=== PATIENT | female | born 1940 | race Hispanic/Latino ===

== ENCOUNTER 2018-06-20 15:41 | Inpatient (IN) | payer MEDICAID, SELFPAY ==
[~2018-06-20 15:41] MED LIST: Iopamidol 370 76% 100 ML VIAL ONE
[2018-06-20 16:08] LABS: #Basophils 0.1 thou/uL (0.0-0.2); #Eosinphils 0.2 thou/uL (0.0-0.7); #Lymphocytes 2.1 thou/uL (1.20-3.40); #Monocytes 0.6 thou/uL (0.11-0.59); #Neutrophils 3.7 thou/uL (1.40-6.50); %Basophils 0.7 % (0.0-1.0); %Eosinophils 3.5 % (0.0-10.0); %Lymphocytes 31.3 % (21.0-51.0); %Monocytes 9.5 % (0.0-10.0); Hemoglobin 7.4 g/dL (12.0-16.0); Mean Corpuscular HGB CONC 28.7 g/dL (32.0-36.0); Mean Corpuscular Hemoglobin 18.3 pg (27.0-31.0); Mean Corpuscular Volume 63.7 fL (78.0-98.0); Mean Platelet Volume 5.7 fL (7.4-10.4); Platelet Count 226 thou/uL (130-400); RBC Distribution Width 18.4 % (11.5-14.5); Red Blood Cell (RBC) Count 4.05 mill/uL (4.20-5.40); White Blood Cell (WBC) Count 6.7 thou/uL (4.8-10.8)
[2018-06-20 16:27] LABS: Anisocytosis SLIGHT = 6-15 cells (100X) (0-5/hpf); Basophilic Stippling SLIGHT = 1-2 cells (100X) (None Seen); Elliptocytes SLIGHT = 2-5 cells (100X) (0-1/hpf); Hypochromia SLIGHT = 6-15 cells (100X) (0-5/hpf); MDiff Complete? YES; Microcytosis SLIGHT = 6-15 cells (100X) (0-5/hpf); Ovalocytes SLIGHT = 2-5 cells (100X) (0-1/hpf); PLT Morphology Comment Appears Adequate; Poikilocytosis SLIGHT = 6-15 cells (100X) (0-5/hpf); Polychromasia SLIGHT = 2-3 cells (100X) (0-2/hpf); Reflex for Review?? YES; Schistocytes SLIGHT = 2-5 cells (100X) (0-1/hpf)
[2018-06-20 16:28] LABS: INR-International Normal Ratio 1.1; PTT 32.2 SEC (22.9-36.1)
[2018-06-20 16:30] LABS: ALT (SGPT) 14 U/L (8-55); AST (SGOT) 32 U/L (5-34); Albumin 3.6 g/dL (3.4-4.8); Alkaline Phosphatase 79 U/L (40-150); Anion Gap 17 mmol/L (10-20); BUN (Urea Nitrogen) 18 mg/dL (9.8-20.1); Bilirubin, Total 0.7 mg/dL (0.2-1.2); CK (CPK) 126 U/L (29-168); Calc. Creatinine Clearance 0 mL/min (70-130); Calcium 8.4 mg/dL (7.8-10.44); Carbon Dioxide 22 mmol/L (23-31); Chloride 107 mmol/L (98-107); Estimated GFR-MDRD 65; Globulin 3.1 g/dL (2.4-3.5); Glucose 97 mg/dL (83-110); Lipase 38 U/L (8-78); Potassium 4.5 mmol/L (3.5-5.1); Protein, Total 6.7 g/dL (6.0-8.3); Sodium 141 mmol/L (136-145)
[2018-06-20 16:32] LABS: CKMB 1.5 ng/mL (0-6.6); Troponin I Less than 0.010 ng/mL (< 0.028)
[2018-06-20 16:34] LABS: Bilirubin Small (Negative); Blood, Urine Negative (Negative); Clarity CLEAR (Clear); Glucose, Urine (Dipstick) Negative (Negative); Leukocyte Trace (Negative); Nitrite Negative (Negative); Protein, Urine (Dipstick) Negative (Neg-Trace); Specific Gravity, Urine 1.021 (1.002-1.036); pH, Urine 6.5 (5.0-9.0)
[2018-06-20 16:36] LABS: Bacteria/HPF None Seen HPF (None Seen); Hyaline Casts/LPF 4-6 HYALINE CAST LPF (0-3 Hyaline); Pathc Cast-AUWi Flag 1.01 (0-2.49); RBC/HPF 0-3 HPF (0-3); WBC/HPF 0-3 HPF (0-3)
--- NOTE | 2018-06-20 17:24 | RAD ---
SINGLE VIEW OF THE CHEST: 06/20/18 COMPARISON: 05/24/15 HISTORY: Generalized weakness and decreased appetite. Headache. FINDINGS: Single view of the chest shows an enlarged but stable cardiomediastinal silhouette. There is no evid ence of consolidation, mass or pleural effusion. Degenerative changes are seen in the spine. IMPRESSION: Stable cardiomegaly. POS: [facility]
--- NOTE | 2018-06-20 17:36 | CT ---
CT ABDOMEN AND PELVIS WITH CONTRAST: 06/20/18 COMPARISON: None. HISTORY: Headache and abdominal pain. Patient reports seeing blood in the toilet. Weakness and anemia. TECHNIQUE: Multiple contiguous axial images were obtained in a CT of the abdomen and pelvis with contrast. Coron al reformats were performed. FINDINGS: The liver is nodular and cirrhotic in appearance. No focal liver lesions are seen. There are hypodens ities in the kidneys measuring up to 2.0 cm in size which likely represents cysts. The adrenal glands , spleen, and pancreas are unremarkable. No free air, free fluid, or stranding changes are seen in th e abdomen or pelvis. There are a few scattered diverticula in the sigmoid colon. The small bowel is normal in caliber. The appendix is not definitely seen. Atherosclerotic calcifications are seen in the aorta. No abdominal or pelvic lymphadenopathy are seen. Degenerative changes are seen in the spine. The visualized inferior thorax and abdominal wall soft t issues are unremarkable. IMPRESSION: 1. No evidence of acute intra-abdominal/pelvic abnormality. 2. Bilateral renal cysts. POS: [facility]
[2018-06-20] MEDS ORDERED: Pantoprazole 40 MG VIAL ONE (17:45)
[2018-06-20 19:51] LABS: Troponin I Less than 0.010 ng/mL (< 0.028)
[2018-06-20] MEDS ORDERED: HumaLOG 300 UNITS/3 ML VIAL SC PRN (21:42)
[2018-06-20] MEDS ORDERED: Ondansetron ODT 4 MG TAB PO PRN (21:42)
[2018-06-20] MEDS ORDERED: Ondansetron PF 4 MG/2 ML Vial IVP PRN (21:42)
[2018-06-20] MEDS ORDERED: Dextrose 50% Abboject 50 ML SYRINGE SLOW IVP PRN (21:42)
[2018-06-20] MEDS ORDERED: Dextrose 5% in Water 1,000 ML IV PRN (21:42)
[2018-06-20 22:29] LABS: Troponin I Less than 0.010 ng/mL (< 0.028)
[2018-06-20] MEDS: Sodium Chloride 0.9% 1,000 ML IV SCH (22:52)
[2018-06-20 23:31] LABS: Hemoglobin 6.4 g/dL (12.0-16.0)
[2018-06-20 23:52] VITALS: BMI 38.4
[2018-06-21 05:09] LABS: #Eosinphils 0.1 thou/uL (0.0-0.7); #Lymphocytes 2.1 thou/uL (1.20-3.40); #Monocytes 0.5 thou/uL (0.11-0.59); #Neutrophils 2.7 thou/uL (1.40-6.50); %Basophils 0.2 % (0.0-1.0); %Eosinophils 2.7 % (0.0-10.0); %Lymphocytes 38.7 % (21.0-51.0); %Monocytes 8.4 % (0.0-10.0); %Neutrophils 50.1 % (42.0-75.0); Hemoglobin 7.6 g/dL (12.0-16.0); Mean Corpuscular HGB CONC 28.9 g/dL (32.0-36.0); Mean Corpuscular Hemoglobin 19.2 pg (27.0-31.0); Mean Corpuscular Volume 66.7 fL (78.0-98.0); Mean Platelet Volume 5.9 fL (7.4-10.4); Platelet Count 188 thou/uL (130-400); RBC Distribution Width 22.5 % (11.5-14.5); Red Blood Cell (RBC) Count 3.93 mill/uL (4.20-5.40); White Blood Cell (WBC) Count 5.5 thou/uL (4.8-10.8)
[2018-06-21 05:21] LABS: Iron 19 ug/dL (50-170); Iron Binding Capacity, Total 413 mcg/dL (265-497)
[2018-06-21 05:24] LABS: Reticulocyte Count 1.9 % (0.5-1.5)
[2018-06-21 05:37] LABS: ALT (SGPT) 11 U/L (8-55); AST (SGOT) 21 U/L (5-34); Albumin 3.1 g/dL (3.4-4.8); Alkaline Phosphatase 64 U/L (40-150); Anion Gap 12 mmol/L (10-20); BUN (Urea Nitrogen) 12 mg/dL (9.8-20.1); Bilirubin, Total 0.7 mg/dL (0.2-1.2); Calc. Creatinine Clearance 94 mL/min (70-130); Calcium 8.1 mg/dL (7.8-10.44); Carbon Dioxide 22 mmol/L (23-31); Chloride 109 mmol/L (98-107); Estimated GFR-MDRD 77; Globulin 2.9 g/dL (2.4-3.5); Glucose 87 mg/dL (83-110); Potassium 3.9 mmol/L (3.5-5.1); Sodium 139 mmol/L (136-145)
[2018-06-21 05:43] LABS: Folate (Folic Acid) 12.5 ng/mL (7.0-31.4)
--- NOTE | 2018-06-21 06:34 | HP ---
CHIEF COMPLAINT: Generalized weakness and dizziness. HISTORY OF PRESENT ILLNESS: This is a 78-year-old female with past medical history of hypertension, diabetes mellitus type 2, hypothyroidism, ovarian CA status post surgery presenting with generalized weakness, anemia and decreased appetite. Per patient's son, the patient reported that she has been having blood in the toilet for about a year and patient is also having associated symptoms of generalized weakness, decreased appetite, headaches and this is what prompted the patient to come to our hospital to be evaluated. The patient denies any fever, chills, chest pain, palpitations, dizziness. REVIEW OF SYSTEMS: Positive for weakness, dizziness, decreased appetite, but as documented in the HPI. All other systems were reviewed and are negative. PAST MEDICAL HISTORY: Diabetes mellitus type 2, hypertension, hypothyroidism, ovarian cancer, status post surgery. PAST SURGICAL HISTORY: Hysterectomy, oophorectomy of right ovary. FAMILY HISTORY: Reviewed and noncontributory PSYCHIATRIC HISTORY: No previous psychiatric history. SOCIAL HISTORY: The patient has no smoking history. The patient denies any alcohol use. The patient denies any drug use. ALLERGIES: No known drug allergies. MEDICATIONS: 1. The patient is taking aspirin 81 mg. 2. Levothyroxine 150 mcg. 3. Felodipine 5 mg. 4. Vicoprofen 7.5 mg/200 mg. PHYSICAL EXAMINATION: VITAL SIGNS: Blood pressure 149/68, pulse is 82, respiratory rate of 18, O2 saturation of 97 on room air. GENERAL: The patient is lying in bed on her left side, does not appear to be in any acute distress. The patient appears her stated age. HEENT: Normocephalic, atraumatic. Pupils are equal, round, and reactive to light. Extraocular movements are intact. No scleral icterus. Mucous membranes are moist. NECK: No JVD. Full range of motion. Trachea is midline. LUNGS: Clear to auscultation bilaterally. No wheezing, no rales, no rhonchi is appreciated. CARDIOVASCULAR: Positive S1, S2, regular rate and rhythm, no murmurs, no gallops or rubs appreciated. ABDOMEN: Obese abdomen, soft, nontender, nondistended, positive bowel sounds in all quadrants. No peritoneal signs. No pulsatile masses. EXTREMITIES: The patient has 5/5 upper extremity strength, good pulses at the radial pulses bilaterally. Lower extremities: The patient had a 5/5 lower extremity strength. No edema noted. Good strength of the lower extremities bilaterally. NEUROLOGIC: Cranial nerves II-XII grossly intact. No neurologic deficit noted. SKIN: Warm, dry, and intact. EKG showed sinus rhythm with a rate of 82. Chest x-ray showed no acute pulmonary process. CT of the abdomen and pelvis with contrast is negative for any acute pathology. LABORATORY: WBC 6.7, hemoglobin 7.4, hematocrit is 25.8, platelet count is 226. RDW is 18.4, MCV 63.7. PT is 14.0, INR is 1.1, PTT 32.2. Sodium is 141, potassium is 4.5, chloride 107, carbon dioxide 22, anion gap 17, BUN is 18, creatinine 0.85, glucose 97, AST 32, ALT 14, ammonia level was 36. TSH is 5.2424. BNP is 76.4. Troponin x3 has been negative at 0.010 x3. Stool occult is negative. ASSESSMENT AND PLAN: 1. This is a 78-year-old female being admitted for symptomatic anemia. The patient has been ordered to be transfused packed red blood cells. We will transfuse the patient and we will follow up on the patient's CBC in the a.m. We have consulted Cardiology to evaluate the patient. It is not known when the patient had endoscopy or colonoscopy done. Patient does not know this history. We will follow up with patient's family and see if patient has had a colonoscopy or endoscopy in the past. We will continue to monitor the patient. 2. Microcytic anemia, most likely due to iron deficiency. At this point, we have ordered iron levels, B12 and folate. We will follow up on iron panel and we will treat the patient accordingly. 3. Hypertension. We will monitor the patient's blood pressure. We will give the patient blood pressure medication as needed and treat the patient's hypertension accordingly. 4. Diabetes mellitus type 2. We will continue insulin sliding scale. 5. Hypothyroidism. The patient's TSH is currently elevated. We have ordered a T4 free. We will follow up on T4 free and we will continue patient on levothyroxine. Currently, the patient is n.p.o., but we can continue patient on her home medications with small sips of water. 6. Deep venous thrombosis and gastrointestinal prophylaxis. MTDD
[2018-06-21] MEDS ORDERED: Prevnar 13-Val Conj/PF 0.5 ML SYRINGE IM ONE (09:00)
[2018-06-21] MEDS: Famotidine/PF 20 mg/2ml Vial SLOW IVP SCH ×2 (09:38→22:28)
[2018-06-21 10:35] LABS: Hemoglobin 8.7 g/dL (12.0-16.0)
[2018-06-21] MEDS: Famotidine 20 MG TAB PO SCH ×2 (11:48→21:35)
[2018-06-21] MEDS ORDERED: GoLYTELY 4,000 ml Bottle PO SCH (14:45)
--- NOTE | 2018-06-21 15:56 | PDOC.PN ---
- Subjective Encounter Start Date: 06/21/18 Encounter Start Time: 08:20 Pt seen for followup re: anemia. Denies chest pain, shortness of breath, fevers or chills. - Objective Resuscitation Status: Resuscitation Status FULL:Full Resuscitation MAR Reviewed: Yes Vital Signs & Weight: Vital Signs (12 hours) Temp Pulse Pulse Resp BP BP Pulse Ox 06/21/18 11:57 98 F 67 18 170/72 H 95 06/21/18 08:11 93 L 06/21/18 08:00 98.3 F 60 16 160/69 H 93 L 06/21/18 07:15 98.1 F 69 16 175/70 H 06/21/18 04:57 97.9 F 61 16 152/69 H 06/21/18 04:42 98.1 F 68 18 148/65 H 06/21/18 04:14 98.2 F 64 16 143/63 H Weight Weight 210 lb 2 oz I&O: 06/20/18 06/21/18 06/22/18 06:59 06:59 06:59 Intake Total 490 350 Balance 490 350 Result Diagrams: 06/21/18 10:08 06/21/18 04:30 Additional Labs: Accuchecks 06/21/18 06/21/18 10:43 05:40 POC Glucose 87 88 EKG Reviewed by me: Yes (Tele: NSR) Phys Exam - Physical Examination Morbid obesity HEENT: moist MMs, sclera anicteric, oral pharynx no lesions, 2+ tonsils pallor Neck: no nodes, no JVD, supple, full ROM Respiratory: no wheezing, no rales, no rhonchi, clear to auscultation bilateral Cardiovascular: RRR, no rub S1, S2 Gastrointestinal: soft, non-tender, no distention, positive bowel sounds Neurological: moves all 4 limbs Psychiatric: normal affect Deviation from normal: oriented to person and place, not to time Dx/Plan (1) Symptomatic anemia Code(s): D64.9 - ANEMIA, UNSPECIFIED Status: Acute Comment: transfuse PRN, await GI input (2) Hypothyroidism Code(s): E03.9 - HYPOTHYROIDISM, UNSPECIFIED Status: Chronic Comment: low fT4, elevated TSH, increase synthroid dose (3) DM2 (diabetes mellitus, type 2) Status: Chronic Comment: continue accuchecks, insulin sliding scale (4) HTN (hypertension) Code(s): I10 - ESSENTIAL (PRIMARY) HYPERTENSION Status: Chronic Comment: start PRN IV hydralazine - Plan * . Review of Systems - Review of Systems Constitutional: weakness. negative: fever, chills, sweats, malaise Respiratory: negative: Cough, Shortness of Breath, SOB with Excertion, Pleuritic Pain, Wheezing Cardiovascular: negative: chest pain, palpitations, orthopnea, paroxysmal nocturnal dyspnea, edema, light headedness Gastrointestinal: negative: Nausea, Vomiting, Abdominal Pain, Diarrhea, Constipation, Melena, Hematochezia Genitourinary: negative: Dysuria, Frequency, Incontinence, Hematuria, Retention Skin: negative: Rash, Lesions, Dave, Bruising - Medications/Allergies Allergies/Adverse Reactions: Allergies Allergy/AdvReac Type Severity Reaction Status Date / Time No Known Allergies Allergy Verified 06/20/18 21:56 Medications: Current Medications Acetaminophen (Tylenol) 650 mg PO Q4H PRN PRN Reason: Headache/Fever/Mild Pain (1-3) Dextrose/Water (Dextrose 50%) 25 gm SLOW IVP PRN PRN PRN Reason: Hypoglycemia Famotidine (Pepcid) 20 mg SLOW IVP Q12HR [facility] Last Admin: 06/21/18 09:38 Dose: 20 mg Famotidine (Pepcid) 20 mg PO BID [facility] Last Admin: 06/21/18 11:48 Dose: Not Given Glucagon (Glucagon) 1 mg IM PRN PRN PRN Reason: Hypoglycemia Sodium Chloride (Normal Saline 0.9%) 1,000 mls @ 70 mls/hr IV .[id number] [facility] Last Admin: 06/20/18 22:52 Dose: 1,000 mls Dextrose/Water (D5w) 1,000 mls @ 0 mls/hr IV .Q0M PRN PRN Reason: Hypoglycemia Insulin Human Lispro (Humalog) 0 units SC .MILD SLIDING SCALE PRN PRN Reason: Mild Correctional Scale Latanoprost (Xalatan 0.005% Ophth Soln) 1 drop EA EYE HS [facility] Levothyroxine Sodium (Synthroid) 50 mcg PO 0600 [facility] Lisinopril (Zestril) 5 mg PO DAILY [facility] Ondansetron HCl (Zofran Odt) 4 mg PO Q6H PRN PRN Reason: Nausea/Vomiting Ondansetron HCl (Zofran) 4 mg IVP Q6H PRN PRN Reason: Nausea/Vomiting Polyethylene Glycol/Electrolytes (Golytely) 4,000 ml PO ONE DEL Stop: 06/21/18 23:00 Sodium Chloride (Flush - Normal Saline) 10 ml IVF Q12HR PRN PRN Reason: Saline Flush Last Admin: 06/21/18 09:38 Dose: 10 ml Sodium Chloride (Flush - Normal Saline) 10 ml IVF PRN PRN PRN Reason: Saline Flush
--- NOTE | 2018-06-21 15:57 | CON ---
DATE OF CONSULTATION: 06/21/2018 REQUESTING PHYSICIAN: Ranjeet Griggs DO REASON FOR CONSULTATION: Iron deficiency anemia and rectal bleeding. HISTORY OF PRESENT ILLNESS: Mayelin Martin is a 78-year-old woman, who was admitted to the hospital last night with severe symptomatic iron deficiency anemia. She has a history of diabetes and hyperte nsion as well as hypothyroidism. She has had a hysterectomy and right oophorectomy in the past. She evidently does take some NSAIDs at home. I see Vicoprofen on her medication list. She denies any p rior gastrointestinal history. She has never had an EGD or colonoscopy that she can remember. She r eports that, for at least several months, she has been having occasional dysphagia to solids or liqui ds, feeling as if food hangs up in the base of the neck or upper part of the chest. This has been a bit worse the past week. She has had frequent small volume emesis over the past few weeks. Occasion ally, she will have some generalized abdominal pain, but this has not been a big part of her presenta tion. She also describes that, over the past 6 months, she has occasionally had a small amount of br ight red blood in her stool. This is not every time. There is no diarrhea with this. She feels she has lost a little bit of weight recently, but cannot quantify it for me. She saw Dr. Carlson in the outpatient setting and was noted to have a hemoglobin of 6.6. Prior hemoglobin was from 3 years [facility] ore and was 11.4 at that time. This is a microcytic anemia and iron studies are low confirming iron deficiency. She has been treated for vitamin B12 deficiency in the past, but vitamin B12 levels at t his time are within normal range. The patient has received 2 units of RBC transfusion since admissio n yesterday. Her hemoglobin came up nicely from 6.4-8.7. REVIEW OF SYSTEMS: Full review of systems including constitutional, head, eyes, ears, nose, throat, GI, , cardiovascular, respiratory, musculoskeletal, and neurologic systems is negative except as no jamey in the HPI. ALLERGIES: No known drug allergies. OUTPATIENT MEDICATIONS: Levothyroxine, felodipine, Vicoprofen. SOCIAL HISTORY: No smoking, alcohol, or drug use. FAMILY HISTORY: No known gastrointestinal malignancy. PAST MEDICAL HISTORY: 1. Hysterectomy and right oophorectomy, evidently for ovarian cancer. 2. Hypothyroidism. 3. Hypertension. 4. Diabetes, type 2. 5. Obesity. PHYSICAL EXAMINATION: VITAL SIGNS: Temperature 98.0, pulse 67, blood pressure 170/72, 95% oxygen saturation on room air. GENERAL: This is a 78-year-old woman lying in bed comfortably, in no acute distress. MENTAL: She is alert and oriented. She can communicate well. SKIN: No jaundice. No rashes visible or palpable. EYES: No scleral icterus. Extraocular movements intact. ENT: Mucous membranes moist, no oral lesions. LYMPH: No submandibular or supraclavicular lymphadenopathy. THYROID: Nontender to palpation. HEART: Regular rate and rhythm. LUNGS: Clear to auscultation bilaterally. ABDOMEN: Obese, bowel sounds are present, soft, some tenderness to palpation in the left upper quadr ant, but no guarding, rebound tenderness. EXTREMITIES: No peripheral edema. VESSELS: Radial pulses 2+ bilaterally. NEUROLOGICAL: Cranial nerves II-XII intact bilaterally. No focal deficits. LABORATORY STUDIES: Hemoglobin was 6.4, hematocrit 22.3, MCV 63.7; after 2 units RBC transfusion, he moglobin came up to 8.7. INR is normal at 1.1, platelets 188, WBC 5.5, free T4 0.52. Folic acid 12. 5. Vitamin B12 306. Ferritin 14.08, TIBC 413, iron low at 19, percentage saturation low at 5, gluco se is 87. Sodium 139, potassium 3.9, BUN only 12, creatinine 0.73, albumin 3.1, total bilirubin 0.7, alkaline phosphatase 64, AST 21, ALT 11, lipase only 38. FOBT was negative. IMAGING STUDIES: Chest x-ray shows stable cardiomegaly, no acute process. CT of the abdomen and pel vis demonstrates no acute process. The liver does have a nodular contour. There are some scattered sigmoid diverticulosis. No other abnormalities. ASSESSMENT AND PLAN: 1. Iron deficiency anemia, severe, symptomatic. 2. Rectal bleeding, intermittent over the past 6 months. 3. Dysphagia, worsening over the past week. I have discussed with the patient and her family that her presentation is concerning for gastrointest inal blood loss. Given the dysphagia, but also the bright red blood in the stool, we need to perform EGD and colonoscopy for further investigation. We may perform esophageal dilation at the time of th e procedure, depending on findings. Note, that she does take nonsteroidal anti-inflammatory drugs an d she is not on any acid suppression. The patient and family expressed understanding. We will admin ister bowel preparation tonight and plan for colonoscopy tomorrow. Thank you for the consultation. Please call any time with questions or concerns.
[2018-06-21] MEDS ORDERED: hydrALAZINE 20 MG/ML VIAL SLOW IVP PRN (16:00)
[2018-06-21] MEDS: Sodium Chloride 0.9% 1,000 ML IV SCH (17:01)
[2018-06-21 17:44] LABS: Hemoglobin 9.5 g/dL (12.0-16.0)
[2018-06-21] MEDS: Latanoprost 0.005% Ophth Soln 2.5 ml Bottle EA EYE SCH (21:35)
[2018-06-21] MEDS ORDERED: Pantoprazole 40 MG VIAL IVP SCH (22:15)
[2018-06-22] MEDS: Levothyroxine Sodium 50 MCG TAB PO SCH (05:32)
[2018-06-22] MEDS: Sodium Chloride 0.9% 1,000 ML IV SCH (05:32)
[2018-06-22] MEDS: Lisinopril 5 MG TAB PO SCH (08:39)
[2018-06-22] MEDS: Pantoprazole 40 MG VIAL IVP SCH ×2 (08:39→20:22)
[2018-06-22] MEDS ORDERED: Promethazine HCl 25 MG/ML VIAL SLOW IVP PRN (12:17)
[2018-06-22] MEDS ORDERED: Ondansetron HCl/PF 4 MG/2 ML Vial IVP PRN (12:17)
[2018-06-22] MEDS ORDERED: Promethazine HCl 25 MG/ML VIAL IM PRN (12:17)
--- NOTE | 2018-06-22 13:09 | OP ---
DATE OF PROCEDURE: 06/22/2018 GI ENDOSCOPY NOTE SURGEON: Bismark Leija M.D. STABLEHAND SURGEON: None. PROCEDURES: 1. EGD with biopsies. 2. Colonoscopy with control of hemorrhage, incomplete exam. INDICATIONS: 1. Iron deficiency anemia. 2. Rectal bleeding. 3. Dysphagia. MEDICATIONS: See anesthesia record. FINDINGS: After discussion of the risks, benefits, and alternatives of the procedure, informed conse nt was obtained and witnessed. Pre-endoscopic cardiopulmonary examination was satisfactory. Timeout was performed before sedation was achieved. Sedation was achieved with anesthesia assistance in the endoscopy unit. A Pentax adult upper endoscope was placed into the oropharynx and passed through th e cricopharyngeus under direct visualization. The esophageal mucosa appeared normal throughout. The endoscope was advanced into the stomach. Forward and retroflexed views of the entire gastric mucosa were obtained. The patient has a small hiatal hernia. In the proximal body at 48 cm from the incis ors, there is a gastric mass. This mass has a broad base, which is ill-defined, and then a finger-li ke projection measuring about 1.5-2 cm in length. There is ulceration on this area of projection, an d a slow mild active oozing of blood. This lesion is too broad based for me to be able to remove end oscopically. Therefore, I elected to get biopsies of the mass. Multiple biopsies were obtained. Th e remainder of the stomach appeared normal. The endoscope was advanced through the pylorus and into the first and second portions of the duodenum, which appeared normal. The upper endoscope was comple tely withdrawn and the patient was repositioned. Digital rectal exam was performed, which demonstrated some external hemorrhoids. A Pentax adult colo noscope was inserted into the anus and passed forward in the usual fashion. Within the rectum, there are multiple medium-sized arteriovenous malformations and there is active oozing of blood from one o f these AVMs. The sigmoid colon is extremely tortuous and there is heavy diverticulosis in the area, to the extent that I was actually unable to pass the colonoscope beyond the sigmoid colon. About 30 cm was the extent of my ability to examine her colon. Examination of the distal sigmoid colon and r ectum showed no other mucosal abnormalities except for the rectal AVMs, one of which was actively ooz ing blood. Retroflexion in the rectum demonstrated some internal hemorrhoids. Her arteriovenous mal formations in the rectum were treated with argon plasma coagulation and hemostasis was successful. A t this point, the colonoscope was completely withdrawn and the patient allowed to recover. The patie nt tolerated the procedure well. There were no immediate post-procedure complications. IMPRESSION: 1. Gastric mass at 48 cm from the incisors, actively oozing slowly, with a broad ill-defined base an d a 1.5 cm finger-like projection with ulceration and active oozing. The mass was biopsied. 2. Otherwise, normal esophagogastroduodenoscopy. 3. Actively oozing rectal arteriovenous malformations, treated successfully with argon plasma coagul ation. 4. Internal and external hemorrhoids. 5. Heavy sigmoid diverticulosis and tortuosity, unable to advance the colonoscope beyond 30 cm. RECOMMENDATIONS: 1. Follow up pathology on the gastric mass biopsies. 2. Monitor hemoglobin and hematocrit. Further transfusion as needed. 3. Daily proton pump inhibitor. 4. Advance diet. 5. The patient's gastric mass was too large and broad based to be removed endoscopically by me. Dep ending on the pathology results, she may end up needing referral to a tertiary center for advanced en doscopic techniques such as ESD. Note, she already had a CT of the abdomen and pelvis which did not demonstrate any findings concerning for metastatic disease.
[2018-06-22] MEDS ORDERED: PROPOFOL 200 MG/20 ML VIAL ONE (13:51)
[2018-06-22] MEDS ORDERED: Lidocaine 1% PF 5 ML VIAL ONE (13:51)
[2018-06-22] MEDS: Acetaminophen 325 MG TAB PO PRN (18:12)
[2018-06-22] MEDS: Latanoprost 0.005% Ophth Soln 2.5 ml Bottle EA EYE SCH (20:22)
--- NOTE | 2018-06-22 22:52 | PDOC.PN ---
- Subjective Encounter Start Date: 06/22/18 Encounter Start Time: 09:15 Patient seen and examined for GI bleed. No new rectal bleed. No new complaints. No overnight events - Objective Resuscitation Status: Resuscitation Status FULL:Full Resuscitation MAR Reviewed: Yes Vital Signs & Weight: Vital Signs (12 hours) Temp Pulse Resp BP Pulse Ox 06/22/18 20:00 98.0 F 70 20 152/67 H 95 06/22/18 16:43 97 06/22/18 15:20 97.9 F 69 16 159/69 H 97 06/22/18 13:10 98.1 F 77 16 174/77 H 97 Weight Weight 209 lb 3 oz I&O: 06/21/18 06/22/18 06/23/18 06:59 06:59 06:59 Intake Total 490 6130 650 Output Total 400 Balance 490 5730 650 Result Diagrams: 06/21/18 17:31 06/21/18 04:30 Additional Labs: Accuchecks 06/22/18 06/22/18 06/22/18 20:56 15:43 05:36 POC Glucose 116 H 91 86 EKG Reviewed by me: Yes (tele SR) Phys Exam - Physical Examination Constitutional: NAD Respiratory: no wheezing, no rhonchi Cardiovascular: RRR, no rub Gastrointestinal: soft, non-tender, positive bowel sounds Musculoskeletal: no edema Neurological: moves all 4 limbs Dx/Plan - Plan DVT proph w/SCDs 1. Symptomatic Anemia 2. Anemia due to GI blood loss s/p 2 units PRBC 3. Iron deficiency 4. Dysphagia 5. Hpothyroidism with low free T4/high TSH 6. Obesity BMI 38.4 7. DM2 8. HTN PLAN: AM labs Cont Lisinopril Add PPI Cont IVF EGD/Colon today Transfer to Medical Review of Systems - Review of Systems Respiratory: negative: Cough, Dry, Shortness of Breath, Hemoptysis, SOB with Excertion, Pleuritic Pain, Sputum, Wheezing Cardiovascular: negative: chest pain, palpitations, orthopnea, paroxysmal nocturnal dyspnea, edema, light headedness, other - Medications/Allergies Allergies/Adverse Reactions: Allergies Allergy/AdvReac Type Severity Reaction Status Date / Time Penicillins Allergy Verified 06/21/18 17:22 Medications: Current Medications Acetaminophen (Tylenol) 650 mg PO Q4H PRN PRN Reason: Headache/Fever/Mild Pain (1-3) Last Admin: 06/22/18 18:12 Dose: 650 mg Dextrose/Water (Dextrose 50%) 25 gm SLOW IVP PRN PRN PRN Reason: Hypoglycemia Glucagon (Glucagon) 1 mg IM PRN PRN PRN Reason: Hypoglycemia Hydralazine HCl (Apresoline) 10 mg SLOW IVP Q6H PRN PRN Reason: SBP Greater Than 170 Last Admin: 06/22/18 13:19 Dose: 10 mg Sodium Chloride (Normal Saline 0.9%) 1,000 mls @ 70 mls/hr IV .[id number] [facility] Last Admin: 06/22/18 05:32 Dose: 1,000 mls Dextrose/Water (D5w) 1,000 mls @ 0 mls/hr IV .Q0M PRN PRN Reason: Hypoglycemia Insulin Human Lispro (Humalog) 0 units SC .MILD SLIDING SCALE PRN PRN Reason: Mild Correctional Scale Latanoprost (Xalatan 0.005% Oph Soln) 1 drop EA EYE HS [facility] Last Admin: 06/22/18 20:22 Dose: 1 drop Levothyroxine Sodium (Synthroid) 50 mcg PO 0600 [facility] Last Admin: 06/22/18 05:32 Dose: 50 mcg Lisinopril (Zestril) 5 mg PO DAILY [facility] Last Admin: 06/22/18 08:39 Dose: 5 mg Ondansetron HCl (Zofran Odt) 4 mg PO Q6H PRN PRN Reason: Nausea/Vomiting Ondansetron HCl (Zofran) 4 mg IVP Q6H PRN PRN Reason: Nausea/Vomiting Pantoprazole Sodium (Protonix) 40 mg IVP Q12HR [facility] Last Admin: 06/22/18 20:22 Dose: 40 mg Sodium Chloride (Flush - Normal Saline) 10 ml IVF Q12HR PRN PRN Reason: Saline Flush Last Admin: 06/22/18 20:26 Dose: 10 ml Sodium Chloride (Flush - Normal Saline) 10 ml IVF PRN PRN PRN Reason: Saline Flush
[2018-06-23 04:52] LABS: #Eosinphils 0.2 thou/uL (0.0-0.7); #Lymphocytes 1.7 thou/uL (1.20-3.40); #Monocytes 0.5 thou/uL (0.11-0.59); #Neutrophils 4.1 thou/uL (1.40-6.50); %Basophils 0.4 % (0.0-1.0); %Eosinophils 3.7 % (0.0-10.0); %Lymphocytes 26.3 % (21.0-51.0); %Neutrophils 62.6 % (42.0-75.0); Hemoglobin 8.7 g/dL (12.0-16.0); Mean Corpuscular HGB CONC 30.1 g/dL (32.0-36.0); Mean Corpuscular Hemoglobin 20.9 pg (27.0-31.0); Mean Corpuscular Volume 69.5 fL (78.0-98.0); Mean Platelet Volume 5.4 fL (7.4-10.4); Platelet Count 187 thou/uL (130-400); RBC Distribution Width 24.2 % (11.5-14.5); Red Blood Cell (RBC) Count 4.17 mill/uL (4.20-5.40); White Blood Cell (WBC) Count 6.5 thou/uL (4.8-10.8)
[2018-06-23 05:07] LABS: Anion Gap 9 mmol/L (10-20); BUN (Urea Nitrogen) 8 mg/dL (9.8-20.1); Calc. Creatinine Clearance 96 mL/min (70-130); Calcium 8.1 mg/dL (7.8-10.44); Carbon Dioxide 23 mmol/L (23-31); Chloride 110 mmol/L (98-107); Estimated GFR-MDRD 79; Glucose 97 mg/dL (83-110); Magnesium 1.7 mg/dL (1.6-2.6); Potassium 3.6 mmol/L (3.5-5.1); Sodium 138 mmol/L (136-145)
[2018-06-23] MEDS: Levothyroxine Sodium 50 MCG TAB PO SCH (05:14)
[2018-06-23] MEDS: Sodium Chloride 0.9% 1,000 ML IV SCH (05:14)
[2018-06-23] MEDS ORDERED: Diabetic Tussin 200 MG/10 ML UDCUP PO PRN (08:06)
[2018-06-23] MEDS ORDERED: Cepastat Lozenges 1 LOZ PO PRN (08:06)
[2018-06-23] MEDS ORDERED: Acetaminophen 500 MG TAB PO PRN (08:06)
[2018-06-23] MEDS ORDERED: Artificial Tears 18 DROP/0.9 ML EA EYE PRN (08:06)
[2018-06-23] MEDS ORDERED: Bisacodyl 5 MG TAB PO PRN (08:06)
[2018-06-23] MEDS ORDERED: cloNIDine 0.1 MG TAB PO PRN (08:06)
[2018-06-23] MEDS ORDERED: Zolpidem Tartrate 5 MG TAB PO PRN (08:06)
[2018-06-23] MEDS ORDERED: Senokot S 8.6-50 MG TAB PO PRN (08:06)
[2018-06-23] MEDS ORDERED: Sodium Chloride 0.65% Nasal 44 ML BOT EA NARE PRN (08:06)
[2018-06-23] MEDS ORDERED: Loperamide HCl 2 MG CAP PO PRN (08:06)
[2018-06-23] MEDS ORDERED: Eucerin (Mineral Oil/Petrolatum,White) 30 gm Jar TOP PRN (08:06)
[2018-06-23] MEDS ORDERED: Loratadine 10 MG TAB PO PRN (08:06)
[2018-06-23] MEDS: Pantoprazole 40 MG VIAL IVP SCH ×2 (08:36→20:33)
[2018-06-23] MEDS: Acetaminophen 325 MG TAB PO PRN (08:36)
[2018-06-23] MEDS: Lisinopril 5 MG TAB PO SCH (08:37)
[2018-06-23] MEDS ORDERED: Iron Sucrose Complex 200 MG in Sodium Chloride 0.9% 250 ML 250 ML IVPB SCH (10:00)
[2018-06-23] MEDS ORDERED: Iron, Sodium Ferric Gluconate 250 MG, Admixture Fee 1 EACH in Sodium Chloride 0.9% 250 ... IVPB SCH (10:15)
--- NOTE | 2018-06-23 11:16 | PDOC.PN ---
- Subjective Encounter Start Date: 06/23/18 Encounter Start Time: 08:30 -: old records requested/rev Patient seen and examined. No new complaints. No overnight events - Objective Resuscitation Status: Resuscitation Status FULL:Full Resuscitation MAR Reviewed: Yes Vital Signs & Weight: Vital Signs (12 hours) Temp Pulse Resp BP BP Pulse Ox 06/23/18 08:37 64 127/61 06/23/18 08:00 97 06/23/18 07:28 98.3 F 64 16 127/61 97 06/23/18 04:00 98.3 F 70 20 149/65 H 96 06/23/18 00:00 98.1 F 70 20 132/61 98 Weight Weight 216 lb 11.2 oz I&O: 06/22/18 06/23/18 06/24/18 06:59 06:59 05:59 Intake Total 6130 1450 Output Total 400 Balance 5730 1450 Result Diagrams: 06/23/18 04:15 06/23/18 04:15 Additional Labs: Accuchecks 06/23/18 06/22/18 06/22/18 05:11 20:56 15:43 POC Glucose 105 116 H 91 Phys Exam - Physical Examination Constitutional: NAD HEENT: PERRLA, moist MMs, sclera anicteric Neck: no JVD, supple Respiratory: no wheezing, no rales, no rhonchi Cardiovascular: RRR, no significant murmur, no rub Gastrointestinal: soft, non-tender, no distention, positive bowel sounds Musculoskeletal: no edema, pulses present Neurological: non-focal, normal sensation, moves all 4 limbs Psychiatric: normal affect, A&O x 3 Skin: no rash, normal turgor Dx/Plan (1) AVM (arteriovenous malformation) of colon Code(s): Q27.33 - ARTERIOVENOUS MALFORMATION OF DIGESTIVE SYSTEM VESSEL Status : Acute Comment: s/p argon plasm coagulation therapy (2) Diverticulosis of colon Code(s): K57.30 - DVRTCLOS OF LG INT W/O PERFORATION OR ABSCESS W/O BLEEDING Status: Acute (3) Gastric mass Code(s): K31.9 - DISEASE OF STOMACH AND DUODENUM, UNSPECIFIED Status: Acute Comment: s/p biopsy, result pending (4) Symptomatic anemia Code(s): D64.9 - ANEMIA, UNSPECIFIED Status: Acute Comment: 2 unit PRBC given (5) DM2 (diabetes mellitus, type 2) Status: Chronic Comment: continue accuchecks, insulin sliding scale (6) Glaucoma Code(s): H40.9 - UNSPECIFIED GLAUCOMA Status: Chronic (7) HTN (hypertension) Code(s): I10 - ESSENTIAL (PRIMARY) HYPERTENSION Status: Chronic Comment: (8) Hypothyroidism Code(s): E03.9 - HYPOTHYROIDISM, UNSPECIFIED Status: Chronic Comment: (9) Obesity (BMI 30-39.9) Code(s): E66.9 - OBESITY, UNSPECIFIED Status: Chronic - Plan cont current plan of care, plan discussed w/ family * give IV iron today * continue IV protonix * repeat labs tomorrow * follow on biopsy result * discussed with family * medication reviewed as below * symptomatic treatment. Review of Systems - Review of Systems ENT: negative: Ear Pain, Ear Discharge, Nose Pain, Nose Discharge, Nose Congestion, Mouth Pain, Mouth Swelling, Throat Pain, Throat Swelling, Other Respiratory: negative: Cough, Dry, Shortness of Breath, Hemoptysis, SOB with Excertion, Pleuritic Pain, Sputum, Wheezing Cardiovascular: negative: chest pain, palpitations, orthopnea, paroxysmal nocturnal dyspnea, edema, light headedness, other Gastrointestinal: negative: Nausea, Vomiting, Abdominal Pain, Diarrhea, Constipation, Melena, Hematochezia, Other Genitourinary: negative: Dysuria, Frequency, Incontinence, Hematuria, Retention , Other Musculoskeletal: negative: Neck Pain, Shoulder Pain, Arm Pain, Back Pain, Hand Pain, Leg Pain, Foot Pain, Other Skin: negative: Rash, Lesions, Dave, Bruising, Other - Medications/Allergies Allergies/Adverse Reactions: Allergies Allergy/AdvReac Type Severity Reaction Status Date / Time Penicillins Allergy Verified 06/21/18 17:22 Medications: Current Medications Acetaminophen (Tylenol) 650 mg PO Q4H PRN PRN Reason: Headache/Fever Last Admin: 06/23/18 08:36 Dose: 650 mg Acetaminophen (Tylenol) 500 mg PO Q6H PRN PRN Reason: Mild Pain (1-3) Artificial Tears (Tears Naturale) 2 drop EA EYE PRN PRN PRN Reason: Dry Eyes Bisacodyl (Dulcolax) 10 mg PO DAILYPRN PRN PRN Reason: Constipation Clonidine (Catapres) 0.1 mg PO Q4H PRN PRN Reason: SBP > ____ Dextrose/Water (Dextrose 50%) 25 gm SLOW IVP PRN PRN PRN Reason: Hypoglycemia Glucagon (Glucagon) 1 mg IM PRN PRN PRN Reason: Hypoglycemia Guaifenesin (Robitussin Sf) 200 mg PO Q4H PRN PRN Reason: Cough Hydralazine HCl (Apresoline) 10 mg SLOW IVP Q6H PRN PRN Reason: SBP Greater Than 170 Last Admin: 06/22/18 13:19 Dose: 10 mg Dextrose/Water (D5w) 1,000 mls @ 0 mls/hr IV .Q0M PRN PRN Reason: Hypoglycemia Ferric Sodium Gluconate Complex 250 mg/ Miscellaneous Medication 1 each/ Sodium Chloride 270 mls @ 129.808 mls/hr IVPB ONE [facility] Stop: 06/23/18 14:00 Insulin Human Lispro (Humalog) 0 units SC .MILD SLIDING SCALE PRN PRN Reason: Mild Correctional Scale Latanoprost (Xalatan 0.005% [facility] Sol) 1 drop EA EYE HS [facility] Last Admin: 06/22/18 20:22 Dose: 1 drop Levothyroxine Sodium (Synthroid) 44 mcg PO 0600 [facility] Lisinopril (Zestril) 5 mg PO DAILY [facility] Last Admin: 06/23/18 08:37 Dose: 5 mg Loperamide HCl (Imodium) 2 mg PO PRN PRN PRN Reason: Diarrhea/Loose Stools Loratadine (Claritin) 10 mg PO DAILYPRN PRN PRN Reason: Sinus Symptoms Mineral Oil/White Petrolatum (Eucerin Cream) 0 gm TOP BIDPRN PRN PRN Reason: Dry Skin Ondansetron HCl (Zofran Odt) 4 mg PO Q6H PRN PRN Reason: Nausea/Vomiting Ondansetron HCl (Zofran) 4 mg IVP Q6H PRN PRN Reason: Nausea/Vomiting Pantoprazole Sodium (Protonix) 40 mg IVP Q12HR [facility] Last Admin: 06/23/18 08:36 Dose: 40 mg Senna/Docusate Sodium (Senokot S) 2 tab PO BID PRN PRN Reason: Constipation Sodium Chloride (Flush - Normal Saline) 10 ml IVF Q12HR PRN PRN Reason: Saline Flush Last Admin: 06/22/18 20:26 Dose: 10 ml Sodium Chloride (Flush - Normal Saline) 10 ml IVF PRN PRN PRN Reason: Saline Flush Sodium Chloride ([place] Nasal [place] 0.65%) 0 ml EA NARE QIDPRN PRN PRN Reason: Nasal Congestion Throat Lozenges (Cepastat Lozenges) 1 dawn PO Q2H PRN PRN Reason: Sore Throat Zolpidem Tartrate (Ambien) 5 mg PO HSPRN PRN PRN Reason: Insomnia
--- NOTE | 2018-06-23 12:43 | PRG ---
DATE OF SERVICE: 06/23/2018 GI INPATIENT DAILY PROGRESS NOTE SUBJECTIVE: Ms. Martin is feeling well today. She has no abdominal pain or nausea. She has been t olerating her diet. There has been no overt bleeding. She is getting an iron infusion this morning. Hemoglobin was 8.7 this morning. Biopsy results are still pending. OBJECTIVE: VITAL SIGNS: Temperature 98.3, pulse 64, blood pressure 127/61, 97% oxygen saturation on room air. GENERAL: No acute distress. HEART: Regular rate and rhythm. LUNGS: Clear to auscultation bilaterally. ABDOMEN: Soft and nontender to palpation. EXTREMITIES: No peripheral edema. LABORATORY STUDIES: Hemoglobin 8.7, WBC 6.5, platelets 187,000. BUN only 8, creatinine 0.71. Sodiu m 138, potassium 3.6, glucose 142. Gastric mass biopsies pending. ASSESSMENT AND PLAN: 1. Gastric mass. Appearance is concerning for possible early malignancy. Note that recent CT of th e abdomen and pelvis did not show any evidence of metastatic disease. Depending on pathology results , I think the patient may end up needing referral to a tertiary center for advanced endoscopic techni ques such as ESD for resection. We could probably arrange this on an outpatient basis. 2. Iron deficiency anemia, severe. The patient is getting iron infusion today. 3. Rectal telangiectasias, status post APC treatment yesterday. I think it is likely that these rec ashely arteriovenous malformations are the source of her overt rectal bleeding. It is also likely that she has arteriovenous malformations more proximally in the colon, which we were unable to reach, as w ell as throughout the small bowel. These may also be contributors to her iron deficiency. No barriers to hospital discharge from a gastrointestinal standpoint when okay with the primary servi ce. We will follow up pathology results when they are available and can arrange appropriate referral s on an outpatient basis. Please call back anytime with questions or concerns.
[2018-06-23] MEDS: Latanoprost 0.005% Ophth Soln 2.5 ml Bottle EA EYE SCH (20:34)
[2018-06-24] MEDS ORDERED: Levothyroxine Sodium 88 MCG TAB PO SCH (06:00)
--- NOTE | 2018-06-24 08:09 | DIS ---
DATE OF ADMISSION: 06/20/2018 DATE OF DISCHARGE: 06/24/2018 PRIMARY CARE PHYSICIAN: Dr. Roney Carlson. DISCHARGE DISPOSITION: Home. PRIMARY DISCHARGE DIAGNOSES: 1. Symptomatic iron deficiency anemia due to blood loss. 2. Gastrointestinal bleed due to rectal telangiectasia, status post argon plasma coagulation therapy . 3. Gastric mass, status post biopsy. SECONDARY DISCHARGE DIAGNOSES: Hypertension, diabetes type 2, hypothyroidism, obesity with BMI 39, c olonic diverticulosis. PRIMARY PROCEDURE AND OPERATION: Colonoscopy showed rectal telangiectasia and argon plasma coagulati on therapy was performed. Diverticulosis and hemorrhoid was found. Upper endoscopy showed gastric m ass and biopsy was obtained, result is pending. RADIOLOGICAL INVESTIGATION: Chest x-ray normal. CT of the abdomen and pelvis negative for any metas tasis. SIGNIFICANT LABORATORY DATA: WBC 6.5, hemoglobin 8.7, platelet 187. INR 1.1. Sodium 138, potassium 3.6, BUN 8, creatinine 0.71, calcium 8.1, magnesium 1.7. DISCHARGE MEDICATIONS: Xalatan eyedrops daily at bedtime, Synthroid 44 mcg daily, lisinopril 5 mg da ike, ferrous sulfate 325 mg p.o. b.i.d., Protonix 40 mg p.o. b.i.d. CONTRAINDICATIONS: None. CODE STATUS: FULL CODE. INPATIENT CONSULTANTS: Dr. Bismark Leija was consulted who did upper and lower endoscopy. TEST RESULTS PENDING ON DISCHARGE: Pathology report from gastric biopsy. DISCHARGE PLAN: Post hospital, the patient is instructed to follow up with Dr. Bismark Leija as well as primary care physician in 1 week. HOSPITAL COURSE: A 78-year-old female who was admitted by Dr. Griggs on 06/21/2018. Please see his H&P for further detail. The patient came to emergency room with dizziness, generalized weakness, fat igue, dyspnea on exertion. She was having symptoms of iron deficiency anemia. She had a routine ken luation in the emergency room, which confirmed iron deficiency anemia. During this admission, the pa leonor was given 2 units of blood transfusion. On admission, her hemoglobin was 6.4 and on discharge, her hemoglobin was 8.7. This patient had upper endoscopy, which showed gastric mass. Biopsy was ob tained, result is pending, which is suspected for early gastric cancer. Colonoscopy showed rectal te langiectasia and argon plasma coagulation therapy was performed. Diverticulosis and hemorrhoid was f ound. The patient remained stable. She was tolerating p.o. well. She did not have any pain. She was ambu latory. Test results discussed with the family member and notified about followup with Dr. Leija to arrange ou tpatient therapy. The patient is seen and examined. The patient is given ferrous sulfate and Protonix prescription. Re st of medications will be continued as per previous. The patient is hemodynamically stable. PHYSICAL EXAMINATION: VITAL SIGNS: Today, temperature 98.7, pulse 78, respiratory rate 18, saturation 94%, blood pressure 116/67. Her examination is completely normal. The patient is medically stable for discharge today.
[2018-06-24] MEDS: Pantoprazole 40 MG VIAL IVP SCH (10:00)
[2018-06-24] MEDS: Lisinopril 5 MG TAB PO SCH (10:05)
[2018-06-24 11:19] VITALS: BP 134/72; TEMP 98
--- NOTE | 2018-07-02 16:58 | EKG ---
Test Reason : WEAKNESS Blood Pressure : / mmHG Vent. Rate : 082 BPM Atrial Rate : 082 BPM P-R Int : 130 ms QRS Dur : 084 ms QT Int : 408 ms P-R-T Axes : 019 -15 038 degrees QTc Int : 476 ms Normal sinus rhythm Normal ECG Confirmed by MICHAEL GROSSMAN, CORTNEY ([id number]), video effects editor SWETA VOSS ([id number]) on 07/02/2018 4:58:05 PM Referred By: Confirmed By:CORTNEY RODRIGUEZ MD
== END 2018-06-24 12:06 | disposition home or self-care (01) | DRG 811 ==
LOC: ERS 15:41 → 2NO 17:32 → T4-B 06-22 15:26
PROVIDERS: ADMIT Family Medicine; ATTEND Family Medicine
PROC: 30233N1 Transfusion of Nonautologous Red Blood Cells into Peripheral Vein, Percutaneous Approach (ICD-10-PCS; 2018-06-21)
PROC: 0W3P8ZZ Control Bleeding in Gastrointestinal Tract, Via Natural or Artificial Opening Endoscopic (ICD-10-PCS; principal; 2018-06-22)
PROC: 0DB78ZX Excision of Stomach, Pylorus, Via Natural or Artificial Opening Endoscopic, Diagnostic (ICD-10-PCS; 2018-06-22)
DX: D50.0 Iron deficiency anemia secondary to blood loss (chronic) (principal); K25.4 Chronic or unspecified gastric ulcer with hemorrhage; K62.5 Hemorrhage of anus and rectum; I10 Essential (primary) hypertension; E11.9 Type 2 diabetes mellitus without complications; E03.9 Hypothyroidism, unspecified; K44.9 Diaphragmatic hernia without obstruction or gangrene; R19.06 Epigastric swelling, mass or lump; K64.4 Residual hemorrhoidal skin tags; Q27.33 Arteriovenous malformation of digestive system vessel; K57.30 Diverticulosis of large intestine without perforation or abscess without bleeding; K64.8 Other hemorrhoids; R13.10 Dysphagia, unspecified; E66.9 Obesity, unspecified; Z68.38 Body mass index [BMI] 38.0-38.9, adult; Z79.82 Long term (current) use of aspirin; Z85.43 Personal history of malignant neoplasm of ovary; Z90.710 Acquired absence of both cervix and uterus; Z90.721 Acquired absence of ovaries, unilateral
CPT/HCPCS: 36415; 36416; 36430; 71045; 74177; 80048; 80053; 81003; 81015; 82140; 82274; 82550; 82553; 82607; 82728; 82746; 83540; 83550; 83690; 83735; 83880; 84439; 84443; 84484; 85025; 85046; 85060; 85610; 85730; 86850; 86900; 86901; 88305; 88312; 88341; 88342; 90471; 90662; 90670; 93005; 94760; 96361; 96374; C9113; G0008; G0009; J0360; J2001; J2704; J2916; J7050; P9016; S0028

== ENCOUNTER 2020-09-12 18:06 | Emergency (ER) | payer MEDICAID, SELFPAY ==
[2020-09-12 18:40] LABS: #Basophils 0.1 thou/uL (0.0-0.2); #Eosinphils 0.1 thou/uL (0.0-0.7); #Lymphocytes 1.4 thou/uL (1.20-3.40); #Monocytes 0.9 thou/uL (0.11-0.59); %Basophils 1.2 % (0.0-1.0); %Eosinophils 0.9 % (0.0-10.0); %Lymphocytes 18.6 % (21.0-51.0); %Monocytes 12.5 % (0.0-10.0); %Neutrophils 66.9 % (42.0-75.0); Hemoglobin 11.2 g/dL (12.0-16.0); Mean Corpuscular HGB CONC 34.2 g/dL (32.0-36.0); Mean Corpuscular Hemoglobin 30.1 pg (27.0-31.0); Mean Corpuscular Volume 88.2 fL (78.0-98.0); Mean Platelet Volume 7.9 fL (7.4-10.4); Platelet Count 175 thou/uL (130-400); RBC Distribution Width 13.8 % (11.5-14.5); White Blood Cell (WBC) Count 7.5 thou/uL (4.8-10.8)
--- NOTE | 2020-09-12 18:43 | RAD ---
Chest one view HISTORY: Weakness. Chest pain. COMPARISON: 06/20/2018. FINDINGS: Cardiac silhouette is magnified and upper limits of normal in size. Pulmonary vasculature i s unremarkable. Mediastinum is slightly shifted rightward with patient rotation. No confluent airspace consolidation or evidence of pneumothorax. IMPRESSION : No acute abnormalities are demonstrated.
[2020-09-12 19:00] LABS: ALT (SGPT) 9 U/L (8-55); AST (SGOT) 18 U/L (5-34); Albumin 3.4 g/dL (3.4-4.8); Alkaline Phosphatase 74 U/L (40-110); Anion Gap 14 mmol/L (10-20); BUN (Urea Nitrogen) 14 mg/dL (9.8-20.1); Bilirubin, Total 1.1 mg/dL (0.2-1.2); Calc. Creatinine Clearance 0 mL/min (70-130); Calcium 8.6 mg/dL (7.8-10.44); Carbon Dioxide 25 mmol/L (23-31); Chloride 102 mmol/L (98-107); Globulin 3.6 g/dL (2.4-3.5); Glucose 121 mg/dL (83-110); Potassium 3.8 mmol/L (3.5-5.1); Sodium 137 mmol/L (136-145)
--- NOTE | 2020-09-12 19:09 | CT ---
CT head noncontrast HISTORY: Headache. FINDINGS: There is no evidence of acute intracranial hemorrhage or infarct. Mild diffuse cortical atr ophy. No mass effect or shift of midline structures. Physiologic calcification at the basal ganglia. Visualized paranasal sinuses remain well aerated. IMPRESSION : No acute abnormalities are demonstrated.
[2020-09-12] MEDS ORDERED: Metoclopramide HCl 10 MG/2 ML VIAL ONE (19:26)
[2020-09-12] MEDS ORDERED: diphenhydrAMINE 50 MG/ML VIAL ONE (19:26)
[2020-09-12 20:08] LABS: Bacteria/HPF 3+ HPF (None Seen); Bilirubin Negative (Negative); Blood, Urine 1+ (Negative); Clarity Extra Turbid (Clear); Glucose, Urine (Dipstick) Normal (Negative); Ketone, Urine Negative (Negative); Leukocyte 500 Leu/uL (Negative); Nitrite Negative (Negative); Protein, Urine (Dipstick) 20 mg/dL (Neg-Trace); Specific Gravity, Urine 1.015 (1.002-1.036); Squamous Epithelial 0-3 HPF (0-3); Urobilinogen 3 mg/dL (Less than 2); WBC/HPF Greater than 50 HPF (0-3)
[2020-09-13 03:01] LABS: SARS-CoV-2 PCR by NAA Not Detected (NotDetected)
== END 2020-09-12 20:40 | disposition home or self-care (01) ==
LOC: ERS 18:06
DX: R51.9 Headache, unspecified (principal); N39.0 Urinary tract infection, site not specified; Z20.822 Contact with and (suspected) exposure to COVID-19; Z79.899 Other long term (current) drug therapy; Z79.82 Long term (current) use of aspirin; R73.03 Prediabetes; E03.9 Hypothyroidism, unspecified; I10 Essential (primary) hypertension
CPT/HCPCS: 70450; 71045; 80053; 81003; 81015; 84484; 85025; 87077; 87086; 87186; 87635; 93005; 96374; 96375; J1200; J2765; U0003; U0005

== ENCOUNTER 2021-06-12 19:34 | Inpatient (IN) | payer MEDICAID, SELFPAY ==
[~2021-06-12 19:34] MED LIST changes: -Iopamidol 370 76% 100 ML VIAL ONE; +Iopamidol-370 76% 500 ML 1 ML ONE
[2021-06-12 20:26] LABS: White Blood Cell (WBC) Count 10.1 thou/uL (4.8-10.8)
[2021-06-12 20:27] LABS: Red Blood Cell (RBC) Count 3.58 mill/uL (4.20-5.40)
[2021-06-12 20:28] LABS: Mean Corpuscular HGB CONC 34.4 g/dL (32.0-36.0); Mean Corpuscular Hemoglobin 30.7 pg (27.0-31.0); Mean Corpuscular Volume 89.2 fL (78.0-98.0); Platelet Count 157 thou/uL (130-400); RBC Distribution Width 14.7 % (11.5-14.5)
[2021-06-12 20:29] LABS: #Eosinphils 0.1 thou/uL (0.0-0.7); #Lymphocytes 2.7 thou/uL (1.20-3.40); #Monocytes 0.7 thou/uL (0.11-0.59); #Neutrophils 6.5 thou/uL (1.40-6.50); %Basophils 0.3 % (0.0-1.0); %Eosinophils 0.9 % (0.0-10.0); %Lymphocytes 27.1 % (21.0-51.0); %Monocytes 7.3 % (0.0-10.0); %Neutrophils 64.5 % (42.0-75.0); Mean Platelet Volume 8.3 fL (7.4-10.4)
[2021-06-12 20:42] LABS: ALT (SGPT) 16 U/L (8-55); AST (SGOT) 30 U/L (5-34); Albumin 3.2 g/dL (3.4-4.8); Alkaline Phosphatase 63 U/L (40-110); Anion Gap 13 mmol/L (10-20); BUN (Urea Nitrogen) 15 mg/dL (9.8-20.1); Bilirubin, Total 1.1 mg/dL (0.2-1.2); Calc. Creatinine Clearance 0 mL/min (70-130); Calcium 8.7 mg/dL (7.8-10.44); Carbon Dioxide 25 mmol/L (23-31); Chloride 104 mmol/L (98-107); Globulin 3.1 g/dL (2.4-3.5); Glucose 109 mg/dL (83-110); Lipase 25 U/L (8-78); Magnesium 1.7 mg/dL (1.6-2.6); Potassium 3.7 mmol/L (3.5-5.1); Protein, Total 6.3 g/dL (5.8-8.1); Sodium 138 mmol/L (136-145)
[2021-06-12 21:11] LABS: Bilirubin Negative (Negative); Blood, Urine Negative (Negative); Clarity Clear (Clear); Glucose, Urine (Dipstick) Normal (Negative); Ketone, Urine Negative (Negative); Leukocyte Negative Leu/uL (Negative); Nitrite Negative (Negative); Protein, Urine (Dipstick) Negative (Neg-Trace); Specific Gravity, Urine 1.015 (1.002-1.036); Urobilinogen Normal mg/dL (Less than 2); pH, Urine 5.5 (5.0-9.0)
[2021-06-12] MEDS ORDERED: Morphine 4 MG/ML VIAL ONE (22:21)
[2021-06-12] MEDS ORDERED: Ondansetron PF 4 MG/2 ML Vial ONE (22:21)
[2021-06-13] MEDS ORDERED: Acetaminophen 650 MG Suppository PR PRN (02:00)
[2021-06-13] MEDS ORDERED: Ondansetron PF 4 MG/2 ML Vial IVP PRN (02:00)
[2021-06-13] MEDS ORDERED: Ondansetron ODT 4 MG TAB PO PRN (02:00)
[2021-06-13 03:59] VITALS: BMI 41.6
[2021-06-13 06:30] LABS: #Eosinphils 0.1 thou/uL (0.0-0.7); #Lymphocytes 1.8 thou/uL (1.20-3.40); #Monocytes 0.5 thou/uL (0.11-0.59); #Neutrophils 3.5 thou/uL (1.40-6.50); %Basophils 0.1 % (0.0-1.0); %Eosinophils 2.2 % (0.0-10.0); %Lymphocytes 30.3 % (21.0-51.0); %Monocytes 8.2 % (0.0-10.0); %Neutrophils 59.2 % (42.0-75.0); Hemoglobin 9.9 g/dL (12.0-16.0); Mean Corpuscular HGB CONC 33.8 g/dL (32.0-36.0); Mean Corpuscular Hemoglobin 30.5 pg (27.0-31.0); Mean Corpuscular Volume 90.2 fL (78.0-98.0); Mean Platelet Volume 8.7 fL (7.4-10.4); Platelet Count 134 thou/uL (130-400); RBC Distribution Width 14.9 % (11.5-14.5); Red Blood Cell (RBC) Count 3.23 mill/uL (4.20-5.40); White Blood Cell (WBC) Count 5.8 thou/uL (4.8-10.8)
[2021-06-13 06:48] LABS: Anion Gap 9 mmol/L (10-20); BUN (Urea Nitrogen) 17 mg/dL (9.8-20.1); Calc. Creatinine Clearance 84 mL/min (70-130); Calcium 8.1 mg/dL (7.8-10.44); Carbon Dioxide 27 mmol/L (23-31); Chloride 107 mmol/L (98-107); Glucose 92 mg/dL (83-110); Potassium 3.7 mmol/L (3.5-5.1); Sodium 139 mmol/L (136-145)
[2021-06-13] MEDS ORDERED: diphenhydrAMINE 50 MG/ML VIAL IVP PRN (09:00)
[2021-06-13] MEDS ORDERED: Bisacodyl 10 MG SUPP PR PRN (09:00)
[2021-06-13] MEDS ORDERED: Artificial Tear Sol 15 ML BOT EA EYE PRN (09:00)
[2021-06-13] MEDS ORDERED: Cepastat Lozenges 1 LOZ PO PRN (09:00)
[2021-06-13] MEDS ORDERED: hydrALAZINE 20 MG/ML VIAL SLOW IVP PRN (09:00)
[2021-06-13] MEDS ORDERED: Sodium Chloride 0.65% Nasal 44 ML BOT EA NARE PRN (09:00)
[2021-06-13] MEDS ORDERED: Hydrocerin (Eucerin) Cream 120 gm Jar TOP PRN (09:00)
[2021-06-13] MEDS ORDERED: FLU VACC QS2021-22(65YR UP)/PF 240 MCG/0.7 ML SYRINGE IM ONE (09:00)
[2021-06-13] MEDS ORDERED: Calcium Carbonate 500 MG ChewTAB PO PRN (09:03)
[2021-06-13] MEDS ORDERED: Senokot S 8.6-50 MG TAB PO PRN (09:03)
[2021-06-13] MEDS ORDERED: Ondansetron ODT 4 MG TAB SL PRN (09:03)
[2021-06-13] MEDS ORDERED: GUAIFENESIN SF SOLN 200 MG/10 ML UDCUP PO PRN (09:03)
[2021-06-13] MEDS: Pantoprazole 40 MG VIAL IVP SCH (09:50)
[2021-06-13] MEDS: Lactated Ringer's 1,000 ML IV SCH ×2 (09:50→20:27)
[2021-06-13 16:54] LABS: SARS-CoV-2 PCR by NAA Not Detected (NotDetected)
[2021-06-13] MEDS: Ferrous Sulfate 325 MG TAB PO SCH (17:39)
[2021-06-13] MEDS: Morphine 4 MG/ML VIAL SLOW IVP PRN (20:51)
[2021-06-13] MEDS: Latanoprost 0.005% Ophth Soln 2.5 ml Bottle EA EYE SCH (22:00)
[2021-06-14] MEDS: Lactated Ringer's 1,000 ML IV SCH ×2 (05:26→17:48)
[2021-06-14] MEDS: Levothyroxine Sodium 88 MCG TAB PO SCH (05:27)
[2021-06-14] MEDS: Morphine 4 MG/ML VIAL SLOW IVP PRN ×2 (05:29→17:47)
[2021-06-14 09:02] LABS: #Eosinphils 0.1 thou/uL (0.0-0.7); #Lymphocytes 1.6 thou/uL (1.20-3.40); #Monocytes 0.6 thou/uL (0.11-0.59); #Neutrophils 4.6 thou/uL (1.40-6.50); %Basophils 0.2 % (0.0-1.0); %Eosinophils 1.6 % (0.0-10.0); %Lymphocytes 23.2 % (21.0-51.0); %Monocytes 8.1 % (0.0-10.0); %Neutrophils 66.8 % (42.0-75.0); Hemoglobin 10.9 g/dL (12.0-16.0); Mean Corpuscular HGB CONC 33.7 g/dL (32.0-36.0); Mean Corpuscular Hemoglobin 30.1 pg (27.0-31.0); Mean Corpuscular Volume 89.4 fL (78.0-98.0); Mean Platelet Volume 9.1 fL (7.4-10.4); Platelet Count 128 thou/uL (130-400); RBC Distribution Width 14.5 % (11.5-14.5); Red Blood Cell (RBC) Count 3.63 mill/uL (4.20-5.40); White Blood Cell (WBC) Count 6.9 thou/uL (4.8-10.8)
[2021-06-14 09:34] LABS: Anion Gap 12 mmol/L (10-20); BUN (Urea Nitrogen) 11 mg/dL (9.8-20.1); Calc. Creatinine Clearance 97 mL/min (70-130); Calcium 8.5 mg/dL (7.8-10.44); Carbon Dioxide 27 mmol/L (23-31); Chloride 104 mmol/L (98-107); Glucose 74 mg/dL (83-110); Magnesium 1.5 mg/dL (1.6-2.6); Potassium 4.1 mmol/L (3.5-5.1); Sodium 139 mmol/L (136-145)
[2021-06-14] MEDS: Enoxaparin Sodium 40 MG/0.4 ML SYRINGE SC SCH (10:16)
[2021-06-14] MEDS: Amlodipine 5 MG TAB PO SCH (10:16)
[2021-06-14] MEDS: Aspirin 81 mg Enteric Coated Tablet PO SCH (10:16)
[2021-06-14] MEDS: Ferrous Sulfate 325 MG TAB PO SCH ×2 (10:16→17:48)
[2021-06-14] MEDS: Pantoprazole 40 MG VIAL IVP SCH (10:17)
[2021-06-14] MEDS: HYDROcodone/Acetaminophen 5/325 mg Tablet PO PRN (20:42)
[2021-06-14] MEDS: Latanoprost 0.005% Ophth Soln 2.5 ml Bottle EA EYE SCH (22:00)
[2021-06-15] MEDS: Lactated Ringer's 1,000 ML IV SCH ×2 (04:32→17:19)
[2021-06-15] MEDS: HYDROcodone/Acetaminophen 5/325 mg Tablet PO PRN ×4 (04:33→18:21)
[2021-06-15 04:46] LABS: #Lymphocytes 1.7 thou/uL (1.20-3.40); %Basophils 0.2 % (0.0-1.0); %Eosinophils 0.5 % (0.0-10.0); %Monocytes 12.3 % (0.0-10.0); Hemoglobin 10.7 g/dL (12.0-16.0); Mean Corpuscular HGB CONC 33.6 g/dL (32.0-36.0); Mean Corpuscular Hemoglobin 30.2 pg (27.0-31.0); Mean Corpuscular Volume 89.8 fL (78.0-98.0); Mean Platelet Volume 8.7 fL (7.4-10.4); Platelet Count 140 thou/uL (130-400); RBC Distribution Width 14.5 % (11.5-14.5); Red Blood Cell (RBC) Count 3.53 mill/uL (4.20-5.40); White Blood Cell (WBC) Count 7.8 thou/uL (4.8-10.8)
[2021-06-15 05:08] LABS: Anion Gap 12 mmol/L (10-20); BUN (Urea Nitrogen) 13 mg/dL (9.8-20.1); Calc. Creatinine Clearance 85 mL/min (70-130); Calcium 8.4 mg/dL (7.8-10.44); Carbon Dioxide 26 mmol/L (23-31); Chloride 103 mmol/L (98-107); Glucose 113 mg/dL (83-110); Magnesium 1.5 mg/dL (1.6-2.6); Potassium 3.7 mmol/L (3.5-5.1); Sodium 137 mmol/L (136-145)
[2021-06-15] MEDS: Levothyroxine Sodium 88 MCG TAB PO SCH (05:26)
[2021-06-15] MEDS: Aspirin 81 mg Enteric Coated Tablet PO SCH (08:17)
[2021-06-15] MEDS: Ferrous Sulfate 325 MG TAB PO SCH ×2 (08:18→17:18)
[2021-06-15] MEDS: Amlodipine 5 MG TAB PO SCH (08:18)
[2021-06-15] MEDS: Lisinopril 10 MG TAB PO SCH (08:18)
[2021-06-15] MEDS: Pantoprazole 40 MG VIAL IVP SCH (08:19)
[2021-06-15] MEDS: Enoxaparin Sodium 40 MG/0.4 ML SYRINGE SC SCH (08:19)
[2021-06-15] MEDS ORDERED: Magnesium Sulfate 3 GM in Sodium Chloride 0.9% 100 ML IVPB SCH (09:00)
[2021-06-15] MEDS: Acetaminophen 325 MG TAB PO PRN ×2 (13:24→17:18)
[2021-06-15] MEDS: Latanoprost 0.005% Ophth Soln 2.5 ml Bottle EA EYE SCH (20:31)
[2021-06-16] MEDS: Lactated Ringer's 1,000 ML IV SCH ×3 (00:53→17:01)
[2021-06-16] MEDS: Levothyroxine Sodium 88 MCG TAB PO SCH (06:10)
[2021-06-16] MEDS: Aspirin 81 mg Enteric Coated Tablet PO SCH (08:38)
[2021-06-16] MEDS: Lisinopril 10 MG TAB PO SCH (08:38)
[2021-06-16] MEDS: Enoxaparin Sodium 40 MG/0.4 ML SYRINGE SC SCH (08:38)
[2021-06-16] MEDS: Ferrous Sulfate 325 MG TAB PO SCH ×2 (08:38→16:55)
[2021-06-16] MEDS: Amlodipine 5 MG TAB PO SCH (08:39)
[2021-06-16] MEDS: Pantoprazole 40 MG VIAL IVP SCH (08:40)
[2021-06-16] MEDS: Acetaminophen 500 MG TAB PO SCH ×2 (08:40→14:58)
[2021-06-16] MEDS: Diclofenac 1% 100 GM GEL TP SCH ×3 (14:10→16:56)
[2021-06-16] MEDS: Morphine 4 MG/ML VIAL SLOW IVP PRN (19:26)
[2021-06-16] MEDS: Latanoprost 0.005% Ophth Soln 2.5 ml Bottle EA EYE SCH (20:51)
[2021-06-17] MEDS: Diclofenac 1% 100 GM GEL TP SCH ×3 (00:39→13:30)
[2021-06-17] MEDS: Acetaminophen 500 MG TAB PO SCH ×4 (00:39→14:37)
[2021-06-17] MEDS: Lactated Ringer's 1,000 ML IV SCH ×2 (00:40→13:27)
[2021-06-17] MEDS: Levothyroxine Sodium 88 MCG TAB PO SCH (05:02)
[2021-06-17] MEDS: Lisinopril 10 MG TAB PO SCH (07:55)
[2021-06-17] MEDS: Ferrous Sulfate 325 MG TAB PO SCH (07:55)
[2021-06-17] MEDS: Pantoprazole 40 MG VIAL IVP SCH (07:55)
[2021-06-17] MEDS: Aspirin 81 mg Enteric Coated Tablet PO SCH (07:57)
[2021-06-17] MEDS: Amlodipine 5 MG TAB PO SCH (07:57)
[2021-06-17] MEDS: Enoxaparin Sodium 40 MG/0.4 ML SYRINGE SC SCH (08:01)
[2021-06-17 08:12] VITALS: BP 131/64; TEMP 98
[2021-06-17] MEDS ORDERED: predniSONE 5 MG TAB PO SCH (09:00)
[2021-06-17 09:17] LABS: Anion Gap 12 mmol/L (10-20); BUN (Urea Nitrogen) 9 mg/dL (9.8-20.1); Calc. Creatinine Clearance 100 mL/min (70-130); Calcium 8.1 mg/dL (7.8-10.44); Carbon Dioxide 27 mmol/L (23-31); Chloride 104 mmol/L (98-107); Glucose 90 mg/dL (83-110); Magnesium 1.5 mg/dL (1.6-2.6); Potassium 3.9 mmol/L (3.5-5.1); Sodium 139 mmol/L (136-145)
== END 2021-06-17 14:54 | disposition home or self-care (01) | DRG 392 ==
LOC: ERS 19:34 → 3SE 06-13 00:30 → T4-A 06-13 12:08
PROVIDERS: ADMIT Student in an Organized Health Care Education/Training Program; ATTEND Internal Medicine
DX: K44.0 Diaphragmatic hernia with obstruction, without gangrene (principal); Z68.41 Body mass index [BMI] 40.0-44.9, adult; Z20.822 Contact with and (suspected) exposure to COVID-19; I10 Essential (primary) hypertension; E03.9 Hypothyroidism, unspecified; D64.9 Anemia, unspecified; K74.60 Unspecified cirrhosis of liver; E66.01 Morbid (severe) obesity due to excess calories; H40.9 Unspecified glaucoma; R42 Dizziness and giddiness; M47.816 Spondylosis without myelopathy or radiculopathy, lumbar region; K21.9 Gastro-esophageal reflux disease without esophagitis; M17.0 Bilateral primary osteoarthritis of knee; Z85.43 Personal history of malignant neoplasm of ovary; Z88.0 Allergy status to penicillin; Z79.82 Long term (current) use of aspirin; Z79.899 Other long term (current) drug therapy; Z79.890 Hormone replacement therapy; Z90.710 Acquired absence of both cervix and uterus; Z98.41 Cataract extraction status, right eye; Z98.42 Cataract extraction status, left eye; Z90.721 Acquired absence of ovaries, unilateral
CPT/HCPCS: 36415; 70450; 71045; 74177; 74250; 80048; 80053; 81003; 83605; 83690; 83735; 83880; 84100; 84443; 84484; 85025; 93005; 96374; 96375; C9113; J1650; J2270; J2405; J3475; J3490; J7120; J7512; Q9967; U0003; U0005

== ENCOUNTER 2022-05-11 14:55 | Inpatient (IN) | payer MEDICAID, OTHER, SELFPAY ==
[2022-05-11] MEDS ORDERED: Morphine 2 MG/ML VIAL ONE (15:44)
[2022-05-11] MEDS ORDERED: Ondansetron ODT 4 MG TAB ONE (15:46)
[2022-05-11 16:10] LABS: #Monocytes 0.1 thou/uL (0.11-0.59); #Neutrophils 7.7 thou/uL (1.40-6.50); %Basophils 0.2 % (0.0-1.0); %Lymphocytes 11.4 % (21.0-51.0); %Monocytes 1.2 % (0.0-10.0); %Neutrophils 87.1 % (42.0-75.0); Hemoglobin 8.7 g/dL (12.0-16.0); Mean Corpuscular HGB CONC 32.9 g/dL (32.0-36.0); Mean Corpuscular Hemoglobin 30.5 pg (27.0-31.0); Mean Corpuscular Volume 92.6 fL (78.0-98.0); Mean Platelet Volume 8.3 fL (7.4-10.4); Platelet Count 172 thou/uL (130-400); RBC Distribution Width 12.7 % (11.5-14.5); Red Blood Cell (RBC) Count 2.86 mill/uL (4.20-5.40); White Blood Cell (WBC) Count 8.9 thou/uL (4.8-10.8)
[2022-05-11 18:27] LABS: ALT (SGPT) 18 U/L (8-55); AST (SGOT) 25 U/L (5-34); Alkaline Phosphatase 99 U/L (40-110); Anion Gap 12 mmol/L (10-20); BUN (Urea Nitrogen) 39 mg/dL (9.8-20.1); Bilirubin, Total 0.6 mg/dL (0.2-1.2); Calc. Creatinine Clearance 0 mL/min (70-130); Calcium 8.7 mg/dL (7.8-10.44); Carbon Dioxide 24 mmol/L (23-31); Chloride 100 mmol/L (98-107); Estimated GFR 55; Globulin 3.7 g/dL (2.4-3.5); Glucose 146 mg/dL (83-110); Potassium 4.5 mmol/L (3.5-5.1); Protein, Total 6.7 g/dL (5.8-8.1); Sodium 131 mmol/L (136-145)
[2022-05-11] MEDS ORDERED: cefTRIAXone\\ROCEPHIN 1 GM VIAL ONE (19:32)
[2022-05-11] MEDS ORDERED: Ondansetron ODT 4 MG TAB PO PRN (19:54)
[2022-05-11] MEDS ORDERED: Acetaminophen 325 MG TAB PO PRN (19:54)
[2022-05-11] MEDS ORDERED: Ondansetron PF 4 MG/2 ML Vial IVP PRN (19:54)
[2022-05-11] MEDS ORDERED: Vancomycin 1 GM/200 ML BAG ONE (20:43)
[2022-05-11] MEDS ORDERED: Vancomycin HCl 1 GM in Sodium Chloride 0.9% 250 ML 300 ML IVPB SCH (21:00)
[2022-05-11 22:03] LABS: Hemoglobin A1c 4.8 % (4.0-6.0)
[2022-05-11 22:41] VITALS: BMI 27.5
[2022-05-11] MEDS: Clindamycin/D5W 900 MG in Premix Bag 1 BAG IVPB SCH (23:05)
[2022-05-11] MEDS: Morphine 2 MG/ML VIAL SLOW IVP PRN (23:27)
[2022-05-11] MEDS: Cefepime 2 GM in Sodium Chloride 0.9% 100 ML IVPB SCH (23:55)
[2022-05-11] MEDS: HYDROcodone/Acetaminophen 5/325 mg Tablet PO PRN (23:56)
[2022-05-12] MEDS: Clindamycin/D5W 900 MG in Premix Bag 1 BAG IVPB SCH ×2 (05:16→15:10)
[2022-05-12] MEDS: Levothyroxine Sodium 88 MCG TAB PO SCH (05:16)
[2022-05-12 06:11] LABS: #Lymphocytes 1.3 thou/uL (1.20-3.40); #Monocytes 0.4 thou/uL (0.11-0.59); #Neutrophils 7.1 thou/uL (1.40-6.50); %Eosinophils 0.1 % (0.0-10.0); %Lymphocytes 14.8 % (21.0-51.0); %Monocytes 4.5 % (0.0-10.0); %Neutrophils 80.7 % (42.0-75.0); Hemoglobin 8.4 g/dL (12.0-16.0); Mean Corpuscular HGB CONC 32.9 g/dL (32.0-36.0); Mean Platelet Volume 8.6 fL (7.4-10.4); Platelet Count 177 thou/uL (130-400); RBC Distribution Width 12.9 % (11.5-14.5); Red Blood Cell (RBC) Count 2.72 mill/uL (4.20-5.40); White Blood Cell (WBC) Count 8.8 thou/uL (4.8-10.8)
[2022-05-12 06:26] LABS: ALT (SGPT) 14 U/L (8-55); AST (SGOT) 18 U/L (5-34); Albumin 2.7 g/dL (3.4-4.8); Alkaline Phosphatase 87 U/L (40-110); Anion Gap 12 mmol/L (10-20); BUN (Urea Nitrogen) 33 mg/dL (9.8-20.1); Bilirubin, Direct 0.2 mg/dL (0.1-0.3); Bilirubin, Total 0.4 mg/dL (0.2-1.2); Calc. Creatinine Clearance 69 mL/min (70-130); Calcium 8.1 mg/dL (7.8-10.44); Carbon Dioxide 23 mmol/L (23-31); Cardiac Risk 3.4 (Less than 4.5); Chloride 104 mmol/L (98-107); Cholesterol 119 mg/dl (< 200 Desired); Estimated GFR 71; Glucose 140 mg/dL (83-110); HDL Cholesterol 35 mg/dL (>60 Neg Risk); LDL Cholesterol, Calculated 76 mg/dL; Magnesium 1.8 mg/dL (1.6-2.6); Potassium 4.5 mmol/L (3.5-5.1); Sodium 134 mmol/L (136-145); Triglycerides 39 mg/dL (Less than 150)
[2022-05-12] MEDS: Enoxaparin Sodium 40 MG/0.4 ML SYRINGE SC SCH (09:25)
[2022-05-12] MEDS: VANCOMYCIN 1.25 GM/250 ML BAG 1.25 GM in Premix Bag 1 BAG IVPB SCH (09:25)
[2022-05-12] MEDS: Amlodipine 5 MG TAB PO SCH (10:46)
[2022-05-12] MEDS: HYDROcodone/Acetaminophen 5/325 mg Tablet PO PRN ×2 (10:47→15:14)
[2022-05-12] MEDS: Cefepime 2 GM in Sodium Chloride 0.9% 100 ML IVPB SCH (12:07)
[2022-05-12] MEDS: cefTRIAXone\\ROCEPHIN 1 GM in Sodium Chloride 0.9% 100 ML IVPB SCH (16:14)
[2022-05-13] MEDS: Levothyroxine Sodium 88 MCG TAB PO SCH (05:46)
[2022-05-13 05:59] LABS: #Eosinphils 0.1 thou/uL (0.0-0.7); #Lymphocytes 1.8 thou/uL (1.20-3.40); #Monocytes 0.5 thou/uL (0.11-0.59); #Neutrophils 3.4 thou/uL (1.40-6.50); %Basophils 0.7 % (0.0-1.0); %Eosinophils 1.5 % (0.0-10.0); %Monocytes 9.1 % (0.0-10.0); %Neutrophils 57.6 % (42.0-75.0); Hemoglobin 8.4 g/dL (12.0-16.0); Mean Corpuscular HGB CONC 33.5 g/dL (32.0-36.0); Mean Corpuscular Hemoglobin 31.7 pg (27.0-31.0); Mean Corpuscular Volume 94.6 fL (78.0-98.0); Mean Platelet Volume 8.6 fL (7.4-10.4); Platelet Count 190 thou/uL (130-400); RBC Distribution Width 13.5 % (11.5-14.5); Red Blood Cell (RBC) Count 2.65 mill/uL (4.20-5.40); White Blood Cell (WBC) Count 5.8 thou/uL (4.8-10.8)
[2022-05-13 06:14] LABS: CRP (Inflammatory) 2.52 mg/dL (= or < 0.5); Phosphorus 2.6 mg/dL (2.3-4.7)
[2022-05-13 06:15] LABS: ALT (SGPT) 67 U/L (8-55); AST (SGOT) 138 U/L (5-34); Albumin 2.4 g/dL (3.4-4.8); Alkaline Phosphatase 152 U/L (40-110); Anion Gap 9 mmol/L (10-20); BUN (Urea Nitrogen) 28 mg/dL (9.8-20.1); Bilirubin, Total 0.6 mg/dL (0.2-1.2); Calc. Creatinine Clearance 75 mL/min (70-130); Calcium 7.9 mg/dL (7.8-10.44); Carbon Dioxide 26 mmol/L (23-31); Chloride 106 mmol/L (98-107); Estimated GFR 78; Globulin 3.1 g/dL (2.4-3.5); Glucose 90 mg/dL (83-110); Potassium 4.3 mmol/L (3.5-5.1); Protein, Total 5.5 g/dL (5.8-8.1); Sodium 137 mmol/L (136-145)
[2022-05-13] MEDS: Amlodipine 5 MG TAB PO SCH (09:19)
[2022-05-13] MEDS: Enoxaparin Sodium 40 MG/0.4 ML SYRINGE SC SCH (09:19)
[2022-05-13 09:28] LABS: HBCM Index 0.07 S/CO (0-0.79); HBSAB Concentration Less than 8.00 mIU/mL; HBSAg Index 0.39 S/CO (0-0.99); Hep A IgM AB Non-Reactive (NonReactive); Hep A IgM S/CO 0.17 S/CO (0-0.79); Hep B Surf AB Non-Reactive (NonReactive); Hep B Surf Ag Non-Reactive S/CO (NonReactive); Hep C IgG Ab Non-Reactive (NonReactive); Hep C Index 0.11 S/CO (0-0.79); Hepatitis B Core IgM Abs Non-Reactive (NonReactive)
[2022-05-13 09:29] LABS: Vancomycin, Trough 11.3 ug/mL
[2022-05-13] MEDS: VANCOMYCIN 1.25 GM/250 ML BAG 1.25 GM in Premix Bag 1 BAG IVPB SCH (10:39)
[2022-05-13] MEDS: HYDROcodone/Acetaminophen 5/325 mg Tablet PO PRN ×3 (11:46→21:53)
[2022-05-13] MEDS: Morphine 2 MG/ML VIAL SLOW IVP PRN ×2 (13:35→20:32)
[2022-05-13] MEDS: cefTRIAXone\\ROCEPHIN 1 GM in Sodium Chloride 0.9% 100 ML IVPB SCH (16:10)
[2022-05-14] MEDS: HYDROcodone/Acetaminophen 5/325 mg Tablet PO PRN ×5 (03:42→23:31)
[2022-05-14] MEDS: Levothyroxine Sodium 88 MCG TAB PO SCH (05:46)
[2022-05-14 06:13] LABS: #Eosinphils 0.3 thou/uL (0.0-0.7); #Lymphocytes 2.3 thou/uL (1.20-3.40); #Monocytes 0.7 thou/uL (0.11-0.59); #Neutrophils 2.1 thou/uL (1.40-6.50); %Basophils 0.6 % (0.0-1.0); %Lymphocytes 42.4 % (21.0-51.0); %Monocytes 12.3 % (0.0-10.0); %Neutrophils 38.8 % (42.0-75.0); Mean Corpuscular HGB CONC 31.9 g/dL (32.0-36.0); Mean Corpuscular Hemoglobin 31.2 pg (27.0-31.0); Mean Corpuscular Volume 97.9 fL (78.0-98.0); Mean Platelet Volume 8.4 fL (7.4-10.4); Platelet Count 216 thou/uL (130-400); RBC Distribution Width 13.2 % (11.5-14.5); Red Blood Cell (RBC) Count 2.89 mill/uL (4.20-5.40); White Blood Cell (WBC) Count 5.4 thou/uL (4.8-10.8)
[2022-05-14 06:41] LABS: ALT (SGPT) 51 U/L (8-55); AST (SGOT) 77 U/L (5-34); Albumin 2.5 g/dL (3.4-4.8); Alkaline Phosphatase 149 U/L (40-110); Anion Gap 9 mmol/L (10-20); BUN (Urea Nitrogen) 18 mg/dL (9.8-20.1); Bilirubin, Total 0.4 mg/dL (0.2-1.2); Calc. Creatinine Clearance 82 mL/min (70-130); Calcium 8.2 mg/dL (7.8-10.44); Carbon Dioxide 27 mmol/L (23-31); Chloride 104 mmol/L (98-107); Estimated GFR 86; Globulin 3.1 g/dL (2.4-3.5); Glucose 83 mg/dL (83-110); Magnesium 1.9 mg/dL (1.6-2.6); Phosphorus 2.8 mg/dL (2.3-4.7); Potassium 4.9 mmol/L (3.5-5.1); Protein, Total 5.6 g/dL (5.8-8.1); Sodium 135 mmol/L (136-145)
[2022-05-14] MEDS: Enoxaparin Sodium 40 MG/0.4 ML SYRINGE SC SCH (08:38)
[2022-05-14] MEDS: Amlodipine 5 MG TAB PO SCH (08:38)
[2022-05-14] MEDS: VANCOMYCIN 1.25 GM/250 ML BAG 1.25 GM in Premix Bag 1 BAG IVPB SCH (08:38)
[2022-05-14] MEDS: cefTRIAXone\\ROCEPHIN 1 GM in Sodium Chloride 0.9% 100 ML IVPB SCH (15:39)
[2022-05-15] MEDS: HYDROcodone/Acetaminophen 5/325 mg Tablet PO PRN ×4 (04:38→21:39)
[2022-05-15] MEDS ORDERED: Polyethylene Glycol 3350 17 GM Packet PO PRN (05:12)
[2022-05-15] MEDS: Levothyroxine Sodium 88 MCG TAB PO SCH (05:44)
[2022-05-15 08:15] LABS: #Eosinphils 0.3 thou/uL (0.0-0.7); #Monocytes 0.6 thou/uL (0.11-0.59); #Neutrophils 2.2 thou/uL (1.40-6.50); %Basophils 0.8 % (0.0-1.0); %Eosinophils 6.6 % (0.0-10.0); %Lymphocytes 38.8 % (21.0-51.0); %Monocytes 11.6 % (0.0-10.0); %Neutrophils 42.2 % (42.0-75.0); Hemoglobin 9.4 g/dL (12.0-16.0); Mean Corpuscular HGB CONC 32.5 g/dL (32.0-36.0); Mean Corpuscular Hemoglobin 31.2 pg (27.0-31.0); Mean Corpuscular Volume 96.2 fL (78.0-98.0); Mean Platelet Volume 8.2 fL (7.4-10.4); Platelet Count 246 thou/uL (130-400); RBC Distribution Width 13.2 % (11.5-14.5); White Blood Cell (WBC) Count 5.2 thou/uL (4.8-10.8)
[2022-05-15 08:25] LABS: Vancomycin, Trough 12.2 ug/mL
[2022-05-15 08:28] LABS: ALT (SGPT) 37 U/L (8-55); AST (SGOT) 42 U/L (5-34); Albumin 2.3 g/dL (3.4-4.8); Alkaline Phosphatase 137 U/L (40-110); Anion Gap 11 mmol/L (10-20); BUN (Urea Nitrogen) 11 mg/dL (9.8-20.1); Bilirubin, Total 0.3 mg/dL (0.2-1.2); Calc. Creatinine Clearance 89 mL/min (70-130); Calcium 7.9 mg/dL (7.8-10.44); Carbon Dioxide 28 mmol/L (23-31); Chloride 101 mmol/L (98-107); Estimated GFR 88; Globulin 3.1 g/dL (2.4-3.5); Glucose 116 mg/dL (83-110); Magnesium 1.8 mg/dL (1.6-2.6); Potassium 4.5 mmol/L (3.5-5.1); Protein, Total 5.4 g/dL (5.8-8.1); Sodium 135 mmol/L (136-145)
[2022-05-15] MEDS: Amlodipine 5 MG TAB PO SCH (08:37)
[2022-05-15] MEDS: Enoxaparin Sodium 40 MG/0.4 ML SYRINGE SC SCH (08:38)
[2022-05-15] MEDS ORDERED: Iopamidol-370 76% 500 ML 1 ML ONE (08:44)
[2022-05-15] MEDS ORDERED: Lidocaine 5% Patch TD SCH ×3 (09:00→13:00)
[2022-05-15] MEDS: VANCOMYCIN 1.25 GM/250 ML BAG 1.25 GM in Premix Bag 1 BAG IVPB SCH (10:34)
[2022-05-15] MEDS ORDERED: traMADol HCl 50 MG TAB PO SCH (12:30)
[2022-05-15] MEDS: cefTRIAXone\\ROCEPHIN 1 GM in Sodium Chloride 0.9% 100 ML IVPB SCH (15:43)
[2022-05-15] MEDS: Transdermal Patch Removal TOP SCH (20:22)
[2022-05-15] MEDS ORDERED: Transdermal Patch Removal TOP SCH (21:00)
[2022-05-16] MEDS: HYDROcodone/Acetaminophen 5/325 mg Tablet PO PRN ×5 (02:06→23:09)
[2022-05-16] MEDS: Levothyroxine Sodium 88 MCG TAB PO SCH (06:07)
[2022-05-16 06:27] LABS: #Basophils 0.1 thou/uL (0.0-0.2); #Eosinphils 0.3 thou/uL (0.0-0.7); #Lymphocytes 1.9 thou/uL (1.20-3.40); #Monocytes 0.4 thou/uL (0.11-0.59); #Neutrophils 2.5 thou/uL (1.40-6.50); %Basophils 1.2 % (0.0-1.0); %Eosinophils 6.5 % (0.0-10.0); %Lymphocytes 35.6 % (21.0-51.0); %Monocytes 8.4 % (0.0-10.0); %Neutrophils 48.3 % (42.0-75.0); Mean Corpuscular HGB CONC 32.8 g/dL (32.0-36.0); Mean Corpuscular Hemoglobin 31.3 pg (27.0-31.0); Mean Corpuscular Volume 95.4 fL (78.0-98.0); Mean Platelet Volume 7.7 fL (7.4-10.4); Platelet Count 247 thou/uL (130-400); RBC Distribution Width 13.1 % (11.5-14.5); Red Blood Cell (RBC) Count 2.87 mill/uL (4.20-5.40); White Blood Cell (WBC) Count 5.3 thou/uL (4.8-10.8)
[2022-05-16 06:54] LABS: Anion Gap 8 mmol/L (10-20); BUN (Urea Nitrogen) 10 mg/dL (9.8-20.1); Calc. Creatinine Clearance 93 mL/min (70-130); Carbon Dioxide 30 mmol/L (23-31); Chloride 102 mmol/L (98-107); Estimated GFR 89; Glucose 79 mg/dL (83-110); Magnesium 1.8 mg/dL (1.6-2.6); Potassium 4.6 mmol/L (3.5-5.1); Sodium 135 mmol/L (136-145)
[2022-05-16] MEDS: Lidocaine 5% Patch TD SCH (09:59)
[2022-05-16] MEDS: VANCOMYCIN 1.25 GM/250 ML BAG 1.25 GM in Premix Bag 1 BAG IVPB SCH (10:00)
[2022-05-16] MEDS: Enoxaparin Sodium 40 MG/0.4 ML SYRINGE SC SCH (10:00)
[2022-05-16] MEDS: Amlodipine 5 MG TAB PO SCH (10:08)
[2022-05-16] MEDS ORDERED: Multivit, Therapeutic 1 TAB PO SCH (14:45)
[2022-05-16] MEDS: cefTRIAXone\\ROCEPHIN 1 GM in Sodium Chloride 0.9% 100 ML IVPB SCH (16:56)
[2022-05-16] MEDS: Transdermal Patch Removal TOP SCH (20:24)
[2022-05-17] MEDS: Levothyroxine Sodium 25 MCG TAB PO SCH (05:30)
[2022-05-17] MEDS: HYDROcodone/Acetaminophen 5/325 mg Tablet PO PRN ×4 (05:30→21:11)
[2022-05-17 06:45] LABS: #Eosinphils 0.3 thou/uL (0.0-0.7); #Lymphocytes 1.9 thou/uL (1.20-3.40); #Monocytes 0.5 thou/uL (0.11-0.59); #Neutrophils 2.6 thou/uL (1.40-6.50); %Basophils 0.7 % (0.0-1.0); %Eosinophils 6.5 % (0.0-10.0); %Lymphocytes 35.1 % (21.0-51.0); %Monocytes 8.8 % (0.0-10.0); %Neutrophils 48.9 % (42.0-75.0); Hemoglobin 8.8 g/dL (12.0-16.0); Mean Corpuscular HGB CONC 32.8 g/dL (32.0-36.0); Mean Corpuscular Hemoglobin 31.4 pg (27.0-31.0); Mean Corpuscular Volume 95.6 fL (78.0-98.0); Mean Platelet Volume 7.8 fL (7.4-10.4); Platelet Count 265 thou/uL (130-400); RBC Distribution Width 13.3 % (11.5-14.5); White Blood Cell (WBC) Count 5.3 thou/uL (4.8-10.8)
[2022-05-17 07:07] LABS: ALT (SGPT) 40 U/L (8-55); AST (SGOT) 50 U/L (5-34); Albumin 2.4 g/dL (3.4-4.8); Alkaline Phosphatase 173 U/L (40-110); Anion Gap 10 mmol/L (10-20); BUN (Urea Nitrogen) 10 mg/dL (9.8-20.1); Bilirubin, Total 0.4 mg/dL (0.2-1.2); Calc. Creatinine Clearance 90 mL/min (70-130); Calcium 8.6 mg/dL (7.8-10.44); Carbon Dioxide 28 mmol/L (23-31); Chloride 103 mmol/L (98-107); Estimated GFR 88; Globulin 3.2 g/dL (2.4-3.5); Glucose 82 mg/dL (83-110); Iron 43 ug/dL (50-170); Iron Binding Capacity, Total 276 mcg/dL (265-497); Magnesium 1.6 mg/dL (1.6-2.6); Potassium 4.7 mmol/L (3.5-5.1); Protein, Total 5.6 g/dL (5.8-8.1); Sodium 136 mmol/L (136-145)
[2022-05-17 07:28] LABS: Vancomycin, Trough 10.8 ug/mL
[2022-05-17] MEDS: Lidocaine 5% Patch TD SCH (08:24)
[2022-05-17] MEDS: Enoxaparin Sodium 40 MG/0.4 ML SYRINGE SC SCH (08:24)
[2022-05-17] MEDS: Multivit, Therapeutic 1 TAB PO SCH (08:24)
[2022-05-17] MEDS: VANCOMYCIN 1.25 GM/250 ML BAG 1.25 GM in Premix Bag 1 BAG IVPB SCH (09:08)
[2022-05-17] MEDS: Morphine 2 MG/ML VIAL SLOW IVP PRN (14:22)
[2022-05-17] MEDS: cefTRIAXone\\ROCEPHIN 1 GM in Sodium Chloride 0.9% 100 ML IVPB SCH (15:33)
[2022-05-17] MEDS: methylPREDNISolone Sod Succ 40 MG VIAL IVP SCH (17:05)
[2022-05-17] MEDS: metroNIDAZOLE 500 MG in Premix Bag 1 BAG IVPB SCH (21:17)
[2022-05-17] MEDS: Transdermal Patch Removal TOP SCH (21:18)
[2022-05-18] MEDS: HYDROcodone/Acetaminophen 5/325 mg Tablet PO PRN ×2 (03:05→14:31)
[2022-05-18 06:12] LABS: #Lymphocytes 0.8 thou/uL (1.20-3.40); %Basophils 0.1 % (0.0-1.0); %Eosinophils 0.2 % (0.0-10.0); %Lymphocytes 15.6 % (21.0-51.0); %Monocytes 0.6 % (0.0-10.0); %Neutrophils 83.4 % (42.0-75.0); Hemoglobin 8.8 g/dL (12.0-16.0); Mean Corpuscular HGB CONC 32.1 g/dL (32.0-36.0); Mean Corpuscular Hemoglobin 30.7 pg (27.0-31.0); Mean Corpuscular Volume 95.5 fL (78.0-98.0); Platelet Count 243 thou/uL (130-400); RBC Distribution Width 13.1 % (11.5-14.5); Red Blood Cell (RBC) Count 2.86 mill/uL (4.20-5.40); White Blood Cell (WBC) Count 4.8 thou/uL (4.8-10.8)
[2022-05-18] MEDS: methylPREDNISolone Sod Succ 40 MG VIAL IVP SCH ×2 (06:17→16:03)
[2022-05-18] MEDS: metroNIDAZOLE 500 MG in Premix Bag 1 BAG IVPB SCH ×2 (06:17→13:19)
[2022-05-18] MEDS: Levothyroxine Sodium 25 MCG TAB PO SCH (06:21)
[2022-05-18 06:41] LABS: Anion Gap 11 mmol/L (10-20); BUN (Urea Nitrogen) 12 mg/dL (9.8-20.1); CK (CPK) 18 U/L (29-168); Calc. Creatinine Clearance 90 mL/min (70-130); Calcium 8.7 mg/dL (7.8-10.44); Carbon Dioxide 25 mmol/L (23-31); Chloride 99 mmol/L (98-107); Estimated GFR 88; Glucose 170 mg/dL (83-110); Magnesium 1.6 mg/dL (1.6-2.6); Potassium 4.1 mmol/L (3.5-5.1); Sodium 131 mmol/L (136-145)
[2022-05-18] MEDS: Enoxaparin Sodium 40 MG/0.4 ML SYRINGE SC SCH (08:28)
[2022-05-18] MEDS: Lidocaine 5% Patch TD SCH (08:28)
[2022-05-18] MEDS: Multivit, Therapeutic 1 TAB PO SCH (08:28)
[2022-05-18] MEDS: VANCOMYCIN 1.25 GM/250 ML BAG 1.25 GM in Premix Bag 1 BAG IVPB SCH (08:28)
[2022-05-18] MEDS: cefTRIAXone\\ROCEPHIN 1 GM in Sodium Chloride 0.9% 100 ML IVPB SCH (16:03)
[2022-05-18] MEDS ORDERED: Cephalexin 250 MG CAP PO SCH (17:00)
[2022-05-18] MEDS: Sulfameth/Trimethoprim DS 800-160mg TAB PO SCH (20:05)
[2022-05-18] MEDS: Transdermal Patch Removal TOP SCH (20:06)
[2022-05-19] MEDS: HYDROcodone/Acetaminophen 5/325 mg Tablet PO PRN (00:05)
[2022-05-19] MEDS ORDERED: Morphine 4 MG/ML VIAL SLOW IVP PRN (01:14)
[2022-05-19] MEDS: Levothyroxine Sodium 25 MCG TAB PO SCH (05:49)
[2022-05-19 08:22] VITALS: BP 132/56; TEMP 98
[2022-05-19] MEDS: Enoxaparin Sodium 40 MG/0.4 ML SYRINGE SC SCH (08:35)
[2022-05-19] MEDS: Sulfameth/Trimethoprim DS 800-160mg TAB PO SCH (08:35)
[2022-05-19] MEDS: Lidocaine 5% Patch TD SCH (08:35)
[2022-05-19] MEDS: Multivit, Therapeutic 1 TAB PO SCH (08:35)
[2022-05-19 12:44] LABS: ANA Symphony (Qualitative) Negative (Negative); ANA Symphony (Quantitative) 0.4 Ratio (< 0.7 Negative); EliA Vaculitis New Method **** NEW METHOD ****; dsDNA IgG Antibody 1.5 IU/mL (<10 Negative)
== END 2022-05-19 12:55 | disposition home or self-care (01) | DRG 603 ==
LOC: ERS 14:55 → SUATTDRO 14:55 → T4-B 19:59
PROVIDERS: ADMIT Internal Medicine; ATTEND Internal Medicine
DX: L03.115 Cellulitis of right lower limb (principal); E87.1 Hypo-osmolality and hyponatremia; Z20.822 Contact with and (suspected) exposure to COVID-19; I10 Essential (primary) hypertension; E03.9 Hypothyroidism, unspecified; K74.60 Unspecified cirrhosis of liver; K57.30 Diverticulosis of large intestine without perforation or abscess without bleeding; E66.9 Obesity, unspecified; K80.70 Calculus of gallbladder and bile duct without cholecystitis without obstruction; I95.1 Orthostatic hypotension; E86.1 Hypovolemia; Z88.0 Allergy status to penicillin; Z98.890 Other specified postprocedural states; Z90.710 Acquired absence of both cervix and uterus; Z90.721 Acquired absence of ovaries, unilateral; Z98.42 Cataract extraction status, left eye; Z98.41 Cataract extraction status, right eye; Z79.899 Other long term (current) drug therapy; Z79.890 Hormone replacement therapy; Z68.27 Body mass index [BMI] 27.0-27.9, adult
CPT/HCPCS: 36415; 70450; 74181; 76700; 80048; 80053; 80061; 80074; 80076; 80202; 82103; 82390; 82550; 82728; 83036; 83516; 83540; 83550; 83605; 83735; 84100; 84439; 84443; 85025; 85379; 86015; 86038; 86140; 86225; 86706; 86803; 87040; 87811; 93306; 93880; 93923; 96365; 96367; 96372; J0692; J0696; J1650; J2270; J2920; J3370; J3490; Q0162; Q9967; U0003; U0005

== ENCOUNTER 2022-06-01 08:52 | Outpatient (CLI) | payer SELFPAY | END 2022-06-01 08:53 | disposition home or self-care (01) | LOC: LABBT 08:52 | PROVIDERS: ATTEND Orthopaedic Surgery | DX: Z01.818 Encounter for other preprocedural examination (principal); M17.12 Unilateral primary osteoarthritis, left knee | CPT/HCPCS: 71046; 80048; 81003; 85025; 85610; 86850; 86900; 86901; 87081; 87811; 93005; 93010 ==

== ENCOUNTER 2022-06-01 09:00 | Inpatient (IN) | payer OTHER ==
[2022-06-01 10:52] LABS: Bilirubin 1+ (Negative); Blood, Urine 10 (Negative); Clarity Clear (Clear); Glucose, Urine (Dipstick) Normal (Negative); Ketone, Urine Negative (Negative); Leukocyte 25 (Negative); Nitrite Negative (Negative); Protein, Urine (Dipstick) 15 mg/dl (Neg-Trace); Urobilinogen Normal mg/dL (Less than 2)
[2022-06-01 10:55] LABS: #Eosinphils 0.2 10x3/uL (0.0-0.5); #Monocytes 0.4 10x3/uL (0.0-1.1); #Neutrophils 2.3 10x3/uL (1.5-8.4); %Basophils 0.7 % (0.0-2.0); %Eosinophils 4.6 % (0.0-6.0); %Lymphocytes 35.9 % (18.0-47.0); %Monocytes 8.9 % (0.0-10.0); %Neutrophils 49.9 % (40.0-75.0); Hemoglobin 8.7 g/dL (12.0-15.5); Mean Corpuscular HGB CONC 34.4 g/dL (32.0-36.0); Mean Corpuscular Hemoglobin 30.4 pg (27.0-33.0); Mean Corpuscular Volume 88.5 fl (81.6-98.3); Mean Platelet Volume 10.6 fl (7.4-10.4); Platelet Count 177 10x3/uL (150-450); RBC Distribution Width 14.3 % (11.5-14.5); Red Blood Cell (RBC) Count 2.86 10x6/uL (3.90-5.03); White Blood Cell (WBC) Count 4.6 10x3/uL (3.5-10.5)
[2022-06-01 11:18] LABS: INR-International Normal Ratio 1.1; Prothrombin Time 11.4 sec (9.5-12.1)
[2022-06-01 11:28] LABS: Anion Gap 14 mmol/L (10-20); BUN (Urea Nitrogen) 23 mg/dL (9.8-20.1); Calc. Creatinine Clearance 0 mL/min (70-130); Calcium 9.1 mg/dL (7.8-10.44); Carbon Dioxide 22 mmol/L (23-31); Chloride 104 mmol/L (98-107); Estimated GFR 48; Glucose 102 mg/dL (83-110); Potassium 4.3 mmol/L (3.5-5.1); Sodium 136 mmol/L (136-145)
[2022-06-02 14:00] VITALS: BMI 35.2
[2022-06-06] MEDS ORDERED: Vancomycin (BATCH) 1.5 GRAM/300 ML BAG ONE (06:05)
[2022-06-06] MEDS ORDERED: Sodium Chloride 0.9% 0 ML ONE (06:05)
[2022-06-06] MEDS ORDERED: Tranexamic Acid 1,000 MG/10 ML VIAL ONE ×2 (06:05→09:20)
[2022-06-06] MEDS ORDERED: fentaNYL Citrate/PF 100 MCG/2 ML SYRINGE ONE ×2 (06:11→08:19)
[2022-06-06] MEDS ORDERED: Bupivacaine PF 0.5% 30 ML VIAL ONE (06:29)
[2022-06-06] MEDS ORDERED: Promethazine HCl 25 MG/ML VIAL IM PRN ×3 (06:45→08:15)
[2022-06-06] MEDS ORDERED: Ondansetron HCl/PF 4 MG/2 ML Vial IVP PRN (06:45)
[2022-06-06] MEDS ORDERED: Promethazine HCl 25 MG/ML VIAL IVPB PRN (06:45)
[2022-06-06] MEDS ORDERED: Sodium Chloride 0.9% 100 ML ONE (07:03)
[2022-06-06] MEDS ORDERED: CEFAZOLIN 2 GM VIAL ONE (07:03)
[2022-06-06] MEDS ORDERED: Dexamethasone 20 MG/5 ML VIAL ONE (07:06)
[2022-06-06] MEDS ORDERED: Ondansetron PF 4 MG/2 ML Vial ONE (07:06)
[2022-06-06] MEDS ORDERED: PROPOFOL 200 MG/20 ML VIAL ONE (07:06)
[2022-06-06] MEDS ORDERED: Clindamycin/D5W 900 mg/50 ml Premix Bag ONE (07:13)
[2022-06-06] MEDS ORDERED: diphenhydrAMINE 25 MG CAP PO PRN (07:27)
[2022-06-06] MEDS ORDERED: traMADol HCl 50 MG TAB PO PRN ×2 (07:27→08:15)
[2022-06-06] MEDS ORDERED: HYDROcodone/Acetaminophen 10/325 mg Tablet PO PRN ×3 (07:27→08:15)
[2022-06-06] MEDS ORDERED: Zolpidem Tartrate 5 MG TAB PO PRN ×2 (07:27→08:15)
[2022-06-06] MEDS ORDERED: Ondansetron PF 4 MG/2 ML Vial IVP PRN ×2 (07:27→08:15)
[2022-06-06] MEDS ORDERED: Acetaminophen 325 MG TAB PO PRN (07:27)
[2022-06-06] MEDS ORDERED: Fentanyl 100 MCG/2 ML VIAL SLOW IVP PRN (07:27)
[2022-06-06] MEDS ORDERED: Tranexamic Acid 1,000 MG in Sodium Chloride 0.9% 100 ML IVPB SCH (07:30)
[2022-06-06] MEDS ORDERED: Fentanyl 100 MCG/2 ML VIAL IV PRN (08:09)
[2022-06-06] MEDS ORDERED: Ropivacaine 0.2% 550 ML 550 ML NERVE BLCK SCH (08:15)
[2022-06-06] MEDS ORDERED: Ropivacaine 0.5% HCl/PF (150 MG/30 ML VIAL) ONE (08:49)
[2022-06-06] MEDS ORDERED: Multivit, Therapeutic 1 TAB PO SCH (09:00)
[2022-06-06] MEDS: Amlodipine 5 MG TAB PO SCH (09:00)
[2022-06-06] MEDS ORDERED: Cyanocobalamin 1000 MCG/ML VIAL IM SCH (09:00)
[2022-06-06] MEDS: CeleCOXIB 100 MG CAP PO SCH (09:00)
[2022-06-06] MEDS: Levothyroxine Sodium 88 MCG TAB PO SCH (09:00)
[2022-06-06] MEDS: Cholecalciferol 1,000 UNITS (25 MCG) TAB PO SCH (09:00)
[2022-06-06] MEDS: Senokot S 8.6-50 MG TAB PO SCH ×2 (09:00→21:18)
[2022-06-06] MEDS ORDERED: Non-Formulary Item 1 EACH (Cholecalciferol (Vitamin D3) [Vitamin D3] 5,000 UNITS Capsule) PO SCH (09:00)
[2022-06-06] MEDS: Multivitamin W/ Minerals 1 TAB PO SCH (09:00)
[2022-06-06] MEDS: Ferrous Gluconate 324 MG TAB PO SCH ×2 (09:00→21:18)
[2022-06-06] MEDS: Aspirin 81 mg Enteric Coated Tablet PO SCH ×2 (09:00→21:18)
[2022-06-06] MEDS ORDERED: Ketorolac Tromethamine 30 MG/ML VIAL ONE (09:20)
[2022-06-06] MEDS ORDERED: Fentanyl 100 MCG/2 ML VIAL ONE (10:13)
[2022-06-06] MEDS: Sodium Chloride 0.9% 1,000 ML IV SCH ×2 (10:30→17:25)
[2022-06-06] MEDS: Ketorolac Tromethamine 30 MG/ML VIAL IVP SCH ×3 (11:26→23:06)
[2022-06-06] MEDS: Clindamycin/D5W 900 MG in Premix Bag 1 BAG IVPB SCH ×2 (12:18→17:28)
[2022-06-06] MEDS ORDERED: Vancomycin 1.5 GRAM/300 ML BAG 1.5 GM in Premix Bag 1 BAG IVPB SCH (18:00)
[2022-06-06] MEDS ORDERED: Vancomycin HCl 1.5 GM in Sodium Chloride 0.9% 250 ML 300 ML IVPB SCH (18:00)
[2022-06-06] MEDS: traMADol HCl 50 MG TAB PO PRN (18:47)
[2022-06-06] MEDS: HYDROcodone/Acetaminophen 10/325 mg Tablet PO PRN (21:33)
[2022-06-07] MEDS: Sodium Chloride 0.9% 1,000 ML IV SCH ×3 (04:15→23:48)
[2022-06-07 05:18] LABS: Hemoglobin 7.8 g/dL (12.0-16.0); Mean Corpuscular HGB CONC 32.1 g/dL (32.0-36.0); Mean Corpuscular Hemoglobin 29.7 pg (27.0-31.0); Mean Corpuscular Volume 92.5 fL (78.0-98.0); Mean Platelet Volume 7.9 fL (7.4-10.4); Platelet Count 173 thou/uL (130-400); RBC Distribution Width 13.4 % (11.5-14.5); Red Blood Cell (RBC) Count 2.62 mill/uL (4.20-5.40); White Blood Cell (WBC) Count 7.8 thou/uL (4.8-10.8)
[2022-06-07] MEDS: traMADol HCl 50 MG TAB PO PRN ×3 (05:54→20:22)
[2022-06-07] MEDS: Ketorolac Tromethamine 30 MG/ML VIAL IVP SCH ×4 (05:55→23:48)
[2022-06-07] MEDS: CeleCOXIB 100 MG CAP PO SCH (07:19)
[2022-06-07] MEDS: Senokot S 8.6-50 MG TAB PO SCH ×2 (08:59→20:21)
[2022-06-07] MEDS: Cholecalciferol 1,000 UNITS (25 MCG) TAB PO SCH (08:59)
[2022-06-07] MEDS: Ferrous Gluconate 324 MG TAB PO SCH ×2 (09:00→20:23)
[2022-06-07] MEDS: Amlodipine 5 MG TAB PO SCH (09:00)
[2022-06-07] MEDS: Levothyroxine Sodium 88 MCG TAB PO SCH (09:00)
[2022-06-07] MEDS: Aspirin 81 mg Enteric Coated Tablet PO SCH ×2 (09:00→20:23)
[2022-06-07] MEDS: Multivitamin W/ Minerals 1 TAB PO SCH (09:00)
[2022-06-07] MEDS: HYDROcodone/Acetaminophen 10/325 mg Tablet PO PRN (16:41)
[2022-06-08] MEDS: HYDROcodone/Acetaminophen 10/325 mg Tablet PO PRN ×3 (05:06→20:06)
[2022-06-08] MEDS: Ketorolac Tromethamine 30 MG/ML VIAL IVP SCH (05:11)
[2022-06-08 05:33] LABS: Mean Corpuscular HGB CONC 32.4 g/dL (32.0-36.0); Mean Corpuscular Volume 92.5 fL (78.0-98.0); Platelet Count 180 thou/uL (130-400); RBC Distribution Width 13.6 % (11.5-14.5); Red Blood Cell (RBC) Count 2.67 mill/uL (4.20-5.40); White Blood Cell (WBC) Count 9.4 thou/uL (4.8-10.8)
[2022-06-08] MEDS: Multivitamin W/ Minerals 1 TAB PO SCH (10:39)
[2022-06-08] MEDS: Cholecalciferol 1,000 UNITS (25 MCG) TAB PO SCH (10:39)
[2022-06-08] MEDS: Aspirin 81 mg Enteric Coated Tablet PO SCH ×2 (10:40→20:03)
[2022-06-08] MEDS: Senokot S 8.6-50 MG TAB PO SCH ×2 (10:40→20:03)
[2022-06-08] MEDS: Levothyroxine Sodium 88 MCG TAB PO SCH (10:40)
[2022-06-08] MEDS: Ferrous Gluconate 324 MG TAB PO SCH ×2 (10:40→20:05)
[2022-06-08] MEDS: CeleCOXIB 100 MG CAP PO SCH (10:41)
[2022-06-08] MEDS: Sodium Chloride 0.9% 1,000 ML IV SCH ×2 (10:41→19:30)
[2022-06-08] MEDS: Amlodipine 5 MG TAB PO SCH (10:46)
[2022-06-09] MEDS: HYDROcodone/Acetaminophen 10/325 mg Tablet PO PRN ×3 (05:10→18:25)
[2022-06-09] MEDS: Sodium Chloride 0.9% 1,000 ML IV SCH ×2 (05:30→15:10)
[2022-06-09 05:58] LABS: Hemoglobin 7.5 g/dL (12.0-16.0); Mean Corpuscular HGB CONC 33.1 g/dL (32.0-36.0); Mean Corpuscular Hemoglobin 30.3 pg (27.0-31.0); Mean Corpuscular Volume 91.7 fL (78.0-98.0); Mean Platelet Volume 8.3 fL (7.4-10.4); Platelet Count 158 thou/uL (130-400); RBC Distribution Width 13.6 % (11.5-14.5); Red Blood Cell (RBC) Count 2.46 mill/uL (4.20-5.40)
[2022-06-09] MEDS: Ferrous Gluconate 324 MG TAB PO SCH (10:02)
[2022-06-09] MEDS: Aspirin 81 mg Enteric Coated Tablet PO SCH (10:02)
[2022-06-09] MEDS: Multivitamin W/ Minerals 1 TAB PO SCH (10:02)
[2022-06-09] MEDS: Cholecalciferol 1,000 UNITS (25 MCG) TAB PO SCH (10:02)
[2022-06-09] MEDS: Levothyroxine Sodium 88 MCG TAB PO SCH (10:03)
[2022-06-09] MEDS: CeleCOXIB 100 MG CAP PO SCH (10:03)
[2022-06-09] MEDS: Amlodipine 5 MG TAB PO SCH (10:03)
[2022-06-09] MEDS: Senokot S 8.6-50 MG TAB PO SCH (10:04)
[2022-06-09 17:12] VITALS: BP 139/66; TEMP 98
== END 2022-06-09 19:38 | disposition home or self-care (01) | DRG 470 ==
LOC: SURG A 06-06 05:41 → SJJU 06-06 11:28
PROVIDERS: ADMIT Orthopaedic Surgery; ATTEND Orthopaedic Surgery
PROC: 0SRD0J9 Replacement of Left Knee Joint with Synthetic Substitute, Cemented, Open Approach (ICD-10-PCS; principal; 2022-06-06)
DX: M17.12 Unilateral primary osteoarthritis, left knee (principal); D64.9 Anemia, unspecified; Z88.0 Allergy status to penicillin; Z90.710 Acquired absence of both cervix and uterus; Z98.42 Cataract extraction status, left eye; Z98.41 Cataract extraction status, right eye; Z96.1 Presence of intraocular lens; Z20.822 Contact with and (suspected) exposure to COVID-19
CPT/HCPCS: 36415; 80048; 81003; 85025; 85027; 85610; 86850; 86900; 86901; 87081; 87811; A4306; C1713; C1776; J0690; J1100; J1885; J2405; J2704; J2795; J3010; J3370; J3490; S0020

== ENCOUNTER 2024-02-28 16:56 | Inpatient (IN) | payer OTHER, SELFPAY ==
[2024-02-28 19:49] LABS: Bilirubin Negative (Negative); Blood, Urine Negative (Negative); CAUTI Indications for Culture Dysuria,urgency,freq; Clarity Clear (Clear); Glucose, Urine (Dipstick) Normal (Negative); Ketone, Urine Negative (Negative); Leukocyte Negative Leu/uL (Negative); Nitrite Negative (Negative); Protein, Urine (Dipstick) Negative (Neg-Trace); RBC/HPF None Seen HPF (0-3); Specific Gravity, Urine 1.001 (1.002-1.036); Squamous Epithelial None Seen HPF (0-3); Urobilinogen Normal mg/dL (Less than 2); WBC/HPF 0-3 HPF (0-3)
[2024-02-28 19:51] LABS: Bacteria/HPF 1+ HPF (None Seen)
[2024-02-28 19:52] LABS: Urine Culture Reflex No No
[2024-02-28 20:04] LABS: #Basophils 0.03 10x3/uL (0.0-0.2); %Basophils 0.7 % (0.0-1.0); %Eosinophils 3.5 % (0.0-10.0); %Lymphocytes 45.8 % (21.0-51.0); %Monocytes 9.7 % (0.0-10.0); %Neutrophils 40.1 % (42.0-75.0); Hematocrit 28.7 % (36.0-47.0); Hemoglobin 9.6 g/dL (12.0-16.0); Mean Corpuscular HGB CONC 33.4 g/dL (32.0-36.0); Mean Corpuscular Hemoglobin 30.7 pg (27.0-31.0); Mean Corpuscular Volume 91.7 fL (78.0-98.0); Mean Platelet Volume 9.8 fL (7.4-10.4); Platelet Count 141 10x3/uL (130-400); Red Blood Cell (RBC) Count 3.13 mill/uL (4.20-5.40)
[2024-02-28 20:19] LABS: ALT (SGPT) 13 U/L (8-55); AST (SGOT) 31 U/L (5-34); Albumin 2.7 g/dL (3.4-4.8); Alkaline Phosphatase 100 U/L (40-110); Anion Gap 14 mmol/L (10-20); BUN (Urea Nitrogen) 11 mg/dL (9.8-20.1); Calc. Creatinine Clearance 0 mL/min (70-130); Calcium 8.6 mg/dL (7.8-10.44); Carbon Dioxide 20 mmol/L (23-31); Chloride 110 mmol/L (98-107); Estimated GFR 88; Globulin 3.5 g/dL (2.4-3.5); Glucose 86 mg/dL (83-110); Potassium 3.7 mmol/L (3.5-5.1); Protein, Total 6.2 g/dL (5.8-8.1); Sodium 140 mmol/L (136-145)
[2024-02-28 20:21] LABS: INR-International Normal Ratio 1.3; Prothrombin Time 15.8 sec (12.0-14.7)
[2024-02-28 20:22] LABS: PTT 32.6 sec (22.9-36.1)
[2024-02-28 20:40] LABS: Free T4 (Free Thyroxine) 1.14 ng/dL (0.70-1.48); Thyroid Stimulating Hormone 0.0337 uIU/mL (0.35-4.94)
[2024-02-28] MEDS ORDERED: Ciprofloxacin Lactate D5W 400 mg (200 mL) BAG ONE (20:45)
[2024-02-28] MEDS ORDERED: Ondansetron PF 4 MG/2 ML Vial IVP PRN (21:26)
[2024-02-28] MEDS ORDERED: Ondansetron ODT 4 MG TAB PO PRN (21:26)
[2024-02-28] MEDS ORDERED: Acetaminophen 650 MG Suppository PR PRN (21:26)
[2024-02-28] MEDS: Sodium Chloride 0.9% 1,000 ML IV SCH (23:30)
[2024-02-28 23:34] VITALS: BMI 27.9
[2024-02-29 07:15] LABS: #Basophils Less than 0.03 10x3/uL (0.0-0.2); %Basophils 0.6 % (0.0-1.0); %Eosinophils 6.9 % (0.0-10.0); %Lymphocytes 41.3 % (21.0-51.0); %Monocytes 11.5 % (0.0-10.0); %Neutrophils 39.4 % (42.0-75.0); Hematocrit 25.6 % (36.0-47.0); Hemoglobin 8.5 g/dL (12.0-16.0); Mean Corpuscular HGB CONC 33.2 g/dL (32.0-36.0); Mean Corpuscular Hemoglobin 30.1 pg (27.0-31.0); Mean Corpuscular Volume 90.8 fL (78.0-98.0); Mean Platelet Volume 10.6 fL (7.4-10.4); Platelet Count 122 10x3/uL (130-400); Red Blood Cell (RBC) Count 2.82 mill/uL (4.20-5.40)
[2024-02-29 07:24] LABS: Iron 36 ug/dL (50-170); Iron Binding Capacity, Total 261 mcg/dL (265-497)
[2024-02-29 07:26] LABS: Anion Gap 10 mmol/L (10-20); BUN (Urea Nitrogen) 8 mg/dL (9.8-20.1); Calc. Creatinine Clearance 75 mL/min (70-130); Calcium 7.9 mg/dL (7.8-10.44); Carbon Dioxide 24 mmol/L (23-31); Chloride 112 mmol/L (98-107); Estimated GFR 90; Glucose 80 mg/dL (83-110); Iron 35 ug/dL (50-170); Iron Binding Capacity, Total 254 mcg/dL (265-497); Potassium 3.6 mmol/L (3.5-5.1); Sodium 142 mmol/L (136-145)
[2024-02-29] MEDS: Aspirin 81 mg Enteric Coated Tablet PO SCH (09:10)
[2024-02-29] MEDS: Famotidine 20 MG TAB PO SCH (09:10)
[2024-02-29] MEDS: LevoFLOXacin 750 mg/D5W 750 MG in Premix 1 BAG IVPB SCH (09:11)
[2024-02-29] MEDS: Amlodipine 5 MG TAB PO SCH (09:11)
[2024-02-29] MEDS: Enoxaparin 40 MG (0.4 mL) SYRINGE SC SCH (09:11)
[2024-02-29 11:55] VITALS: BMI 27.9
[2024-02-29] MEDS: FLUoxetine HCl 20 MG CAP PO SCH (20:36)
[2024-03-01] MEDS ORDERED: Levothyroxine Sodium 88 MCG TAB PO SCH (06:00)
[2024-03-01] MEDS: Levothyroxine Sodium 75 MCG TAB PO SCH (07:11)
[2024-03-02 06:21] LABS: Hemoglobin 8.6 g/dL (12.0-16.0); Mean Corpuscular HGB CONC 33.1 g/dL (32.0-36.0); Mean Corpuscular Hemoglobin 30.5 pg (27.0-31.0); Mean Corpuscular Volume 92.2 fL (78.0-98.0); Mean Platelet Volume 10.3 fL (7.4-10.4); Platelet Count 108 10x3/uL (130-400); RBC Distribution Width 14.6 % (11.5-14.5); Red Blood Cell (RBC) Count 2.82 mill/uL (4.20-5.40)
[2024-03-02 06:31] LABS: Anion Gap 9 mmol/L (10-20); BUN (Urea Nitrogen) 11 mg/dL (9.8-20.1); Calc. Creatinine Clearance 66 mL/min (70-130); Carbon Dioxide 22 mmol/L (23-31); Chloride 108 mmol/L (98-107); Estimated GFR 87; Glucose 87 mg/dL (83-110); Potassium 3.7 mmol/L (3.5-5.1); Sodium 135 mmol/L (136-145)
[2024-03-02 08:29] VITALS: BP 130/57; TEMP 98.2
[2024-03-02] MEDS: Acetaminophen 325 MG TAB PO PRN (09:09)
== END 2024-03-02 11:31 | disposition home or self-care (01) | DRG 72 ==
LOC: ERS 16:56 → T4-A 21:02 → OBSVTOIN 02-29 14:04
PROVIDERS: ADMIT Student in an Organized Health Care Education/Training Program; ATTEND Internal Medicine
DX: G93.41 Metabolic encephalopathy (principal); F03.90 Unspecified dementia, unspecified severity, without behavioral disturbance, psychotic disturbance, mood disturbance, and anxiety; D64.9 Anemia, unspecified; I10 Essential (primary) hypertension; E03.8 Other specified hypothyroidism; Z88.0 Allergy status to penicillin; Z79.899 Other long term (current) drug therapy; Z79.82 Long term (current) use of aspirin; Z79.890 Hormone replacement therapy; Z90.710 Acquired absence of both cervix and uterus
CPT/HCPCS: 36415; 70450; 80048; 80053; 81001; 82728; 83540; 83550; 84439; 84443; 84481; 85025; 85027; 85610; 85730; 93005; J0744; J1650; J1956; J7050

== ENCOUNTER 2024-04-10 13:48 | Observation (INO) | payer MEDICAID, SELFPAY ==
[~2024-04-10 13:48] MED LIST changes: -Iopamidol-370 76% 500 ML 1 ML ONE; +Iopamidol-370 76% 500 ML MDV (1 ML CHARGE) ONE
[2024-04-10 14:17] LABS: #Basophils 0.04 10x3/uL (0.0-0.2); %Basophils 0.8 % (0.0-1.0); %Eosinophils 4.7 % (0.0-10.0); %Lymphocytes 30.6 % (21.0-51.0); %Monocytes 8.9 % (0.0-10.0); %Neutrophils 54.8 % (42.0-75.0); Mean Corpuscular HGB CONC 33.3 g/dL (32.0-36.0); Mean Corpuscular Hemoglobin 29.7 pg (27.0-31.0); Mean Corpuscular Volume 89.1 fL (78.0-98.0); Mean Platelet Volume 9.7 fL (7.4-10.4); Platelet Count 216 10x3/uL (130-400); RBC Distribution Width 14.6 % (11.5-14.5); Red Blood Cell (RBC) Count 3.03 mill/uL (4.20-5.40)
[2024-04-10 14:33] LABS: ALT (SGPT) 11 U/L (8-55); AST (SGOT) 30 U/L (5-34); Albumin 2.5 g/dL (3.4-4.8); Alkaline Phosphatase 87 U/L (40-110); Anion Gap 11 mmol/L (10-20); BUN (Urea Nitrogen) 13 mg/dL (9.8-20.1); Bilirubin, Total 0.7 mg/dL (0.2-1.2); CK (CPK) 69 U/L (29-168); Calc. Creatinine Clearance 0 mL/min (70-130); Calcium 8.5 mg/dL (7.8-10.44); Carbon Dioxide 22 mmol/L (23-31); Chloride 106 mmol/L (98-107); Estimated GFR 85; Globulin 4.2 g/dL (2.4-3.5); Glucose 121 mg/dL (83-110); Lipase 24 U/L (8-78); Potassium 4.3 mmol/L (3.5-5.1); Protein, Total 6.7 g/dL (5.8-8.1); Sodium 135 mmol/L (136-145)
[2024-04-10 14:38] LABS: Troponin I 0.017 ng/mL (< 0.028)
[2024-04-10 15:18] LABS: INR-International Normal Ratio 1.2; PTT 32.5 sec (22.9-36.1); Prothrombin Time 15.3 sec (12.0-14.7)
[2024-04-10 17:10] LABS: Bacteria/HPF None Seen HPF (None Seen); Bilirubin Negative (Negative); Blood, Urine Negative (Negative); CAUTI Indications for Culture Alt mental st,lethar; Clarity Clear (Clear); Glucose, Urine (Dipstick) Normal (Negative); Ketone, Urine Negative (Negative); Leukocyte Negative Leu/uL (Negative); Nitrite Negative (Negative); Protein, Urine (Dipstick) Negative (Neg-Trace); RBC/HPF 0-3 HPF (0-3); Specific Gravity, Urine 1.029 (1.002-1.036); Squamous Epithelial None Seen HPF (0-3); Urobilinogen Normal mg/dL (Less than 2); WBC/HPF 0-3 HPF (0-3); pH, Urine 6.5 (5.0-9.0)
[2024-04-10 17:11] LABS: Urine Culture Reflex No No
[2024-04-10 18:31] LABS: SARS-CoV-2 E Target Negative; SARS-CoV-2 N2 Target Negative; SARS-CoV-2 NAA Rapid Test Not Detected (NotDetected); SARS-CoV-2 RdRP gene Negative
[2024-04-10] MEDS ORDERED: Acetaminophen 325 MG TAB PO PRN (23:15)
[2024-04-10] MEDS ORDERED: Ondansetron ODT 4 MG TAB SL PRN (23:15)
[2024-04-10] MEDS ORDERED: Ondansetron PF 4 MG/2 ML Vial IVP PRN (23:15)
[2024-04-11] MEDS: Aspirin Chewable 81 MG TAB PO SCH (01:00)
[2024-04-11] MEDS ORDERED: Aspirin Chewable 81 MG TAB ONE ×2 (01:13→12:50)
[2024-04-11 04:42] LABS: Cardiac Risk 3.3 (Less than 4.5)
[2024-04-11] MEDS: Aspirin 81 mg Enteric Coated Tablet PO SCH (09:00)
[2024-04-11] MEDS: Enoxaparin 40 MG (0.4 mL) SYRINGE SC SCH (12:00)
[2024-04-11] MEDS ORDERED: Enoxaparin 40 MG (0.4 mL) SYRINGE ONE (12:51)
[2024-04-11 13:11] VITALS: TEMP 97.3
[2024-04-11 13:13] VITALS: BMI 22.6
[2024-04-11 17:29] VITALS: BP 144/59
== END 2024-04-11 17:27 | disposition home or self-care (01) ==
LOC: ERS 13:48 → ERHOLD 23:11
PROVIDERS: ADMIT Hospitalist; ATTEND Hospitalist
DX: G93.40 Encephalopathy, unspecified (principal); K59.00 Constipation, unspecified; I10 Essential (primary) hypertension; E03.9 Hypothyroidism, unspecified; Z79.890 Hormone replacement therapy; Z79.899 Other long term (current) drug therapy
CPT/HCPCS: 36415; 36416; 51701; 70450; 70496; 70498; 70551; 71045; 74176; 80053; 80061; 81001; 82550; 83605; 83690; 84443; 84484; 85025; 85610; 85730; 86850; 86860; 86870; 86880; 86900; 86901; 86905; 87040; 93005; 95816; 95819; 96372; G0378; J1650; Q9967; U0002